=== PATIENT | male | born 1980 | race Hispanic/Latino ===

== ENCOUNTER 2018-05-20 00:50 | Inpatient (IN) | payer SELFPAY ==
[2018-05-20] MEDS ORDERED: Ondansetron PF 4 MG/2 ML Vial ONE ×2 (01:06→15:04)
[2018-05-20] MEDS ORDERED: Promethazine HCl 25 MG/ML VIAL ONE (02:16)
[2018-05-20] MEDS ORDERED: Morphine 4 MG/ML VIAL ONE (02:16)
[2018-05-20] MEDS ORDERED: Ondansetron PF 4 MG/2 ML Vial IVP PRN ×2 (04:07→11:27)
[2018-05-20] MEDS: Sodium Chloride 0.9% 1,000 ML IV SCH ×2 (04:16→13:09)
[2018-05-20] MEDS: Morphine 4 MG/ML VIAL SLOW IVP PRN ×2 (06:34→13:13)
[2018-05-20] MEDS: Piperacillin/Tazobactam 3.375 GM in Sodium Chloride 0.9% 100 ML IVPB SCH ×2 (06:34→12:39)
--- NOTE | 2018-05-20 07:16 | HP ---
CHIEF COMPLAINT: Right upper quadrant abdominal pain. HISTORY OF PRESENT ILLNESS: The patient is a 37-year-old male, who has a 3-day history of right uppe r quadrant pain, radiating to the back, associated with nausea, no vomiting, no fevers or chills. PAST MEDICAL HISTORY: Hypertension. PAST SURGERIES: Ear surgery for tumor. MEDICATIONS: None. ALLERGIES: No known drug allergies. 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 No tobacco or alcohol. FAMILY HISTORY: Noncontributory. PHYSICAL EXAMINATION: VITAL SIGNS: Temperature 97.6, pulse 62, blood pressure 117/78. GENERAL: He is awake, alert, but in severe pain, sitting upright. HEENT: No jaundice. LUNGS: Clear. HEART: Regular rate and rhythm. ABDOMEN: Soft, but very tender in the right upper quadrant with a positive Lara sign. EXTREMITIES: Unremarkable. LABORATORY DATA: His white count is 8.3, H and H 16 and 45, platelet count 242,000. Electrolytes ar e fine. Glucose elevated at 122. Liver function tests normal. Lipase normal. Urinalysis negative. He had an ultrasound showing cholelithiasis and thickened gallbladder wall. ASSESSMENT: Acute cholecystitis. PLAN: Laparoscopic cholecystectomy. CONSENT: I have discussed the planned procedure as well as risk of bleeding, infection, injury to tulio wel, bile duct, need to open. He understands and gives informed consent.
--- NOTE | 2018-05-20 07:47 | ULT ---
RIGHT UPPER QUADRANT ULTRASOUND: INDICATIONS: Pain. FINDINGS: There is no evidence of focal hepatic mass. Cholelithiasis is present. There is mild prominence of the gallbladder wall. Lara sign is reported as negative. The common duct is normal at 3 mm. Ther e is no ascites visualized. IMPRESSION: Cholelithiasis. Mild prominence of the gallbladder wall may relate to cholecystitis in the correct c linical context. POS: [facility]
[2018-05-20] MEDS ORDERED: Bupivacaine/Epinephrine 0.25% 30 ML VIAL ONE (10:18)
[2018-05-20] MEDS ORDERED: Famotidine/PF 20 mg/2ml Vial ONE (10:20)
[2018-05-20] MEDS ORDERED: Fentanyl 100 MCG/2 ML VIAL ONE (10:20)
[2018-05-20] MEDS ORDERED: Piperacillin/Tazobactam 3.375 GM VIAL ONE (10:25)
[2018-05-20] MEDS ORDERED: Promethazine HCl 25 MG/ML VIAL SLOW IVP PRN (10:55)
[2018-05-20] MEDS ORDERED: Promethazine HCl 25 MG/ML VIAL IM PRN ×2 (10:55→11:27)
[2018-05-20] MEDS ORDERED: Ondansetron HCl/PF 4 MG/2 ML Vial IVP PRN (10:55)
[2018-05-20] MEDS ORDERED: Meperidine HCl/PF 25 MG/ML VIAL SLOW IVP PRN (10:55)
[2018-05-20] MEDS ORDERED: Mag-Al 1200 mg/1200 mg/30 ML UDCUP PO PRN (11:27)
[2018-05-20] MEDS ORDERED: hydrALAZINE 20 MG/ML VIAL SLOW IVP PRN (11:27)
[2018-05-20] MEDS ORDERED: Dextrose 5% in Water 1,000 ML IV PRN (11:27)
[2018-05-20] MEDS ORDERED: Dextrose 50% Abboject 50 ML SYRINGE SLOW IVP PRN (11:27)
[2018-05-20] MEDS ORDERED: HYDROcodone/Acetaminophen 10/325 mg Tablet PO PRN (11:27)
[2018-05-20] MEDS ORDERED: Calcium Carbonate 500 MG ChewTAB PO PRN (11:27)
--- NOTE | 2018-05-20 12:03 | OP ---
DATE OF PROCEDURE: 05/20/2018 PREOPERATIVE DIAGNOSIS: Acute cholecystitis. SURGEON: Rodríguez Mcdonald M.D. PROCEDURE PERFORMED: Laparoscopic cholecystectomy. INDICATIONS: This is a 37-year-old male who presented with a 24-hour history of right upper quadrant pain radiating to the back. Ultrasound showed thickened gallbladder wall, positive Lara sign. FINDINGS: Thickened gallbladder wall with acute inflammation. PROCEDURE: After informed consent was obtained, the patient was taken to the operating room and give n general endotracheal anesthesia, placed in the supine position. The abdomen was prepped and draped in usual fashion. Local anesthesia infiltrated subcutaneously and deep, subumbilical incision was p erformed. The subcu divided sharply. Fascia grasped and 2 stay sutures of 0 Vicryl placed to either side of midline. Midline incised. Digital palpation revealed no local adhesions. A blunt 10/12 mm trocar inserted. Pneumoperitoneum was created to a pressure of 15 mmHg. Zero degree laparoscope in serted under direct vision, three 5 mm ports placed subcostally. Gallbladder grasped and advanced wallace periorly. The peritoneum was lysed distally to expose the cystic duct, artery and critical view. Th e duct was triply ligated. The artery triply ligated both divided. The gallbladder was removed from its fossa utilizing electrocautery, removed from the abdomen in an Endosac through the umbilical por t. Hemostasis assured with electrocautery. The wound irrigated. Irrigation fluid removed. Trocars and retractors removed. The fascia closed with interrupted 0 Vicryl suture. The skin closed with i nterrupted 4-0 Rapide. Steri-Strips applied. Sterile bandage applied. The patient tolerated the pr ocedure well and was transferred to recovery in good condition. Sponge and needle count verified cor rect x2.
[2018-05-20] MEDS: Ketorolac Tromethamine 30 MG/ML VIAL IVP SCH ×2 (13:00→17:30)
[2018-05-20] MEDS: D5 1/2 NS w/20 mEq KCL 1,000 ML IV SCH ×2 (13:07→20:40)
[2018-05-20] MEDS: cefOXitin 2 GM in Sodium Chloride 0.9% 100 ML IVPB SCH ×2 (13:15→20:41)
[2018-05-20] MEDS: HYDROcodone/Acetaminophen 10/325 mg Tablet PO PRN ×2 (14:34→20:41)
[2018-05-20] MEDS ORDERED: Lidocaine 1% PF 5 ML VIAL ONE (15:04)
[2018-05-20] MEDS ORDERED: Ketorolac Tromethamine 30 MG/ML VIAL ONE (15:04)
[2018-05-20] MEDS ORDERED: Metoclopramide HCl 10 MG/2 ML VIAL ONE (15:04)
[2018-05-20] MEDS ORDERED: Dexamethasone 20 MG/5 ML VIAL ONE (15:04)
[2018-05-20] MEDS ORDERED: PROPOFOL 200 MG/20 ML VIAL ONE (15:04)
[2018-05-20] MEDS ORDERED: Glycopyrrolate 0.2 MG/ML 5 ML SYRINGE ONE (15:04)
[2018-05-20] MEDS: Famotidine 20 MG TAB PO SCH (20:10)
[2018-05-20] MEDS: Famotidine/PF 20 mg/2ml Vial SLOW IVP SCH (20:40)
[2018-05-21] MEDS: Ketorolac Tromethamine 30 MG/ML VIAL IVP SCH ×5 (00:18→22:59)
[2018-05-21] MEDS: HYDROcodone/Acetaminophen 10/325 mg Tablet PO PRN ×2 (01:42→18:17)
[2018-05-21] MEDS: cefOXitin 2 GM in Sodium Chloride 0.9% 100 ML IVPB SCH ×3 (05:46→18:14)
[2018-05-21] MEDS: Morphine 2 MG/ML SYRINGE SLOW IVP PRN ×4 (05:47→20:19)
[2018-05-21] MEDS: D5 1/2 NS w/20 mEq KCL 1,000 ML IV SCH ×4 (05:49→23:48)
[2018-05-21 06:32] LABS: #Lymphocytes 1.6 thou/uL (1.20-3.40); #Monocytes 0.8 thou/uL (0.11-0.59); #Neutrophils 7.5 thou/uL (1.40-6.50); %Basophils 0.1 % (0.0-1.0); %Eosinophils 0.1 % (0.0-10.0); %Lymphocytes 16.2 % (21.0-51.0); %Monocytes 8.2 % (0.0-10.0); %Neutrophils 75.4 % (42.0-75.0); Hemoglobin 13.9 g/dL (14.0-18.0); Mean Corpuscular HGB CONC 31.7 g/dL (32.0-36.0); Mean Corpuscular Hemoglobin 29.9 pg (27.0-31.0); Mean Corpuscular Volume 94.2 fL (78.0-98.0); Mean Platelet Volume 7.1 fL (7.4-10.4); Platelet Count 225 thou/uL (130-400); RBC Distribution Width 11.5 % (11.5-14.5); Red Blood Cell (RBC) Count 4.65 mill/uL (4.70-6.10)
[2018-05-21 06:54] LABS: ALT (SGPT) 211 U/L (8-55); AST (SGOT) 184 U/L (5-34); Albumin 3.5 g/dL (3.5-5.0); Alkaline Phosphatase 51 U/L (40-150); Anion Gap 9 mmol/L (10-20); BUN (Urea Nitrogen) 9 mg/dL (8.9-20.6); Bilirubin, Total 2.7 mg/dL (0.2-1.2); Calc. Creatinine Clearance 110 mL/min (70-130); Calcium 8.8 mg/dL (7.8-10.44); Carbon Dioxide 28 mmol/L (22-29); Chloride 104 mmol/L (98-107); Estimated GFR-MDRD 81; Globulin 2.8 g/dL (2.4-3.5); Glucose 123 mg/dL (70-105); Lipase 27 U/L (8-78); Potassium 4.3 mmol/L (3.5-5.1); Protein, Total 6.3 g/dL (6.0-8.3); Sodium 137 mmol/L (136-145)
--- NOTE | 2018-05-21 08:24 | PRG ---
DATE OF SERVICE: 05/21/2018 SUBJECTIVE: The patient is still having quite a bit of pain in the epigastrium and right upper quadr ant. OBJECTIVE: VITAL SIGNS: Temperature 97.6, pulse 69, blood pressure 119/80. GENERAL: He looks a little better than he did yesterday. ABDOMEN: Soft, minimal tenderness. Incisions are healing well. LABORATORY DATA: White count is 10, H&H 13 and 43, platelet count 223. His T-bilirubin is elevated at 2.7, AST 184, ALT is 211, lipase is normal. ASSESSMENT: Worrisome for possible retained stone. PLAN: Consult GI for possible ERCP.
[2018-05-21] MEDS: Famotidine/PF 20 mg/2ml Vial SLOW IVP SCH ×2 (08:26→20:19)
[2018-05-21] MEDS: Famotidine 20 MG TAB PO SCH ×2 (09:14→20:19)
[2018-05-21] MEDS ORDERED: Levofloxacin 500 mg/D5W 100 ml Premix Bag ONE (10:40)
[2018-05-21] MEDS: Enoxaparin Sodium 40 MG/0.4 ML SYRINGE SC SCH (10:41)
[2018-05-21] MEDS ORDERED: Fentanyl 100 MCG/2 ML VIAL ONE ×2 (10:47→11:33)
[2018-05-21] MEDS ORDERED: Iothalamate Meglumine 60% 50 ML VIAL FS ONE (10:53)
[2018-05-21] MEDS ORDERED: Indomethacin 50 MG SUPP ONE (11:42)
[2018-05-21] MEDS ORDERED: ISOVUE-370 76%-LOCM 1 ML ONE (11:47)
[2018-05-21] MEDS ORDERED: Midazolam HCl 2 mg/2 ml Vial ONE (11:58)
--- NOTE | 2018-05-21 14:05 | CON ---
DATE OF CONSULTATION: 05/21/2018 REASON FOR CONSULTATION: Elevated liver enzymes after laparoscopic cholecystectomy. HISTORY OF PRESENT ILLNESS: Mr. Zimmerman is a 37-year-old gentleman, who has had intermittent pain wit h right upper quadrant for about a year or so. He had been to the ER at [facility] in March and arora d a CAT scan that was normal. He had normal labs at that time. He presented to our hospital early y ester morning with a 3-day history of right upper quadrant pain radiating to his back with nausea, but no vomiting. He was seen by Dr. Rodríguez Mcdonald. He had a white count of 8.3, normal CBC, normal li misty function test and lipase. Ultrasound showed cholelithiasis, thickened gallbladder wall. He had a laparoscopic cholecystectomy, which should acutely inflamed gallbladder. His liver function tests were noted to be elevated with bilirubin 2.7, AST and ALT of 184 and 211, they were 0.6, 28, and 29 y esterday. His lipase today is 27. He (01:29) pain at the trocar sites, (01:32) acute ch olecystitis, seems to be lessened. He has no nausea or vomiting. He has no fever or chills. An IOC was not performed at the time of his laparoscopic cholecystectomy, as his liver function tests were normal preoperatively. PAST MEDICAL HISTORY: Hypertension. PAST SURGICAL HISTORY: Ear surgery. ALLERGIES: None known. 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 His daughter is in the room with him as well a s his . FAMILY HISTORY: Negative. MEDICATIONS: Maalox, DuoNeb, Tums, cefoxitin, Lovenox, Pepcid, hydrocodone p.r.n., morphine p.r.n. PHYSICAL EXAMINATION: VITAL SIGNS: Temperature is 97.6, pulse 69, blood pressure is 119/80. GENERAL: He is resting comfortably in bed. He is in no distress. LUNGS: Clear. HEART: Regular rate and rhythm without clicks or murmurs. ABDOMEN: Soft, nontender. There is no rebound. There is no guarding. He has mild tenderness at th e trocar sites. LABORATORY STUDIES: White count 10, hemoglobin 13.9, platelet count 225. Other labs are normal. ASSESSMENT AND PLAN: Enrique in liver function tests after cholecystectomy. He had a 3 mm common duct on preoperative ultrasound, thickened gallbladder wall, and completely normal liver function tests i n March and on the day of admission. Differential diagnosis includes inflammation of liver bed p ost-laparoscopic cholecystectomy, bile leak, although he does not have that type pain or common bile duct stone. Dr. Cortez did mention that the patient had multiple small stones and is concerned for cho ledocholithiasis. We will plan for ERCP today. I have discussed the risks, benefits, and possible c omplications with the patient and he wishes to proceed.
--- NOTE | 2018-05-21 14:06 | RAD ---
ERCP: HISTORY: A 37-year-old male with a history of right upper quadrant pain. FINDINGS: Four portable fluoroscopic spot images are performed. There is injection of the common bile duct. There is suggestion of a filling defect in the distal co mmon duct on the initial study. Mild common duct dilatation. The intrahepatic ducts are incompletel y seen but appear unremarkable as visualized. IMPRESSION: Probable filling defect, distal common bile duct, on the initial image, with no persistent filling de fect on the later images that are provided. POS: [facility]
[2018-05-21] MEDS ORDERED: Ondansetron PF 4 MG/2 ML Vial ONE (14:50)
[2018-05-21] MEDS ORDERED: Glycopyrrolate 0.2 MG/ML 5 ML SYRINGE ONE (14:50)
[2018-05-21] MEDS ORDERED: PROPOFOL 200 MG/20 ML VIAL ONE (14:50)
[2018-05-21] MEDS ORDERED: Lidocaine 1% PF 5 ML VIAL ONE (14:50)
[2018-05-21] MEDS ORDERED: Bisacodyl 10 MG SUPP PR PRN (19:38)
--- NOTE | 2018-05-21 19:53 | OP ---
DATE OF SERVICE: 05/21/2018 PREOPERATIVE DIAGNOSES: 1. Elevated liver function test in a cholestatic pattern after laparoscopic cholecystectomy yesterda y. 2. Acute cholecystitis. PROCEDURES: ERCP with sphincterotomy and sweeping of the ducted balloon. ANESTHESIA: General endotracheal anesthesia, the patient is on empiric antibiotics, given Indocin wallace ppositories and IV fluids to help prevent post-ERCP pancreatitis. POSTOPERATIVE DIAGNOSES: Questionable filling defect in distal duct noted after sphincterotomy with balloon cholangiogram. The patient likely passed stone before the procedure or other causes for the elevated liver enzymes PROCEDURE IN DETAIL: After the patient was informed of the risks, benefits, and possible complicatio ns of endoscopy including perforation, bleeding, reaction to medication and aspiration, pancreatitis, informed consent was obtained. The patient was brought to endoscopy suite where he was sedated in g radual fashion. He was intubated and once the airway was secured, he was placed in prone position on the fluoroscopy table. Grader Patrol film was obtained showing clips in the right upper quadrant consistent with history of cholecystectomy. The endoscope was advanced through the esophagus, stomach and seco nd and third portion of duodenum. The ampulla was brought into view. There was clear bile emanating from the very dark. Ultimately, a cholangiogram was obtained with assistance of a guidewire _ ____ of less than 3 mL of contrast. A sphincterotomy was then performed over a guidewire. A cholang iogram suggested possibly some filling defects in the distal duct, but no distinct stones. Once the sphincterotomy was performed, no stones noted to come out of the duct. The duct was measured to be ab out 9-10 mm and it was swept 3 times with occlusion cholangiogram at the mm 9-12 mm balloon. Occlusi on cholangiogram showed no signs of filling defects. There was good drainage of contrast both endosc opically and radiographically. The scope was removed. The patient tolerated the procedure well with no complications.
[2018-05-21 22:18] LABS: #Lymphocytes 1.6 thou/uL (1.20-3.40); #Monocytes 0.9 thou/uL (0.11-0.59); #Neutrophils 6.4 thou/uL (1.40-6.50); %Basophils 0.3 % (0.0-1.0); %Eosinophils 0.3 % (0.0-10.0); %Lymphocytes 17.6 % (21.0-51.0); %Monocytes 9.8 % (0.0-10.0); Hemoglobin 14.2 g/dL (14.0-18.0); Mean Corpuscular HGB CONC 31.8 g/dL (32.0-36.0); Mean Corpuscular Hemoglobin 29.7 pg (27.0-31.0); Mean Corpuscular Volume 93.4 fL (78.0-98.0); Mean Platelet Volume 6.3 fL (7.4-10.4); Platelet Count 220 thou/uL (130-400); RBC Distribution Width 11.5 % (11.5-14.5); Red Blood Cell (RBC) Count 4.77 mill/uL (4.70-6.10); White Blood Cell (WBC) Count 8.8 thou/uL (4.8-10.8)
--- NOTE | 2018-05-21 22:23 | CT ---
CT ABDOMEN AND PELVIS WITH CONTRAST: 05/21/18 Multiple axial tomograms were obtained through the abdomen and pelvis with IV enhancement. INDICATION: Right upper quadrant pain. Back pain. Cholecystectomy one day ago. ERCP earlier today. FINDINGS: Stranding in the lung bases suggest linear atelectasis. Liver and spleen unremarkable. Postcholecystectomy clips. There is peripancreatic edema and inflammatory change suggesting pancreatitis. Correlate with laborat ory values. Adrenal glands and kidneys unremarkable. Small bowel loops appear normal caliber. Colon unremarkable. Aorta normal caliber. No adenopathy. IMPRESSION: 1. Peripancreatic fluid and inflammation consistent with pancreatitis. 2. Postoperative changes noted in the anterior subcutaneous tissues. POS: [facility]
[2018-05-21 22:47] LABS: ALT (SGPT) 216 U/L (8-55); AST (SGOT) 117 U/L (5-34); Albumin 3.6 g/dL (3.5-5.0); Alkaline Phosphatase 58 U/L (40-150); Anion Gap 6 mmol/L (10-20); BUN (Urea Nitrogen) 8 mg/dL (8.9-20.6); Bilirubin, Direct 1.7 mg/dL (0.1-0.3); Bilirubin, Total 2.6 mg/dL (0.2-1.2); Calc. Creatinine Clearance 116 mL/min (70-130); Calcium 8.4 mg/dL (7.8-10.44); Carbon Dioxide 32 mmol/L (22-29); Chloride 101 mmol/L (98-107); Estimated GFR-MDRD 86; Glucose 91 mg/dL (70-105); Potassium 3.5 mmol/L (3.5-5.1); Protein, Total 6.2 g/dL (6.0-8.3); Sodium 135 mmol/L (136-145)
[2018-05-21 23:00] LABS: Lipase 3870 U/L (8-78)
[2018-05-21] MEDS ORDERED: Fentanyl 100 MCG/2 ML VIAL SLOW IVP PRN (23:27)
[2018-05-21] MEDS ORDERED: Morphine 2 MG/ML SYRINGE SLOW IVP PRN (23:27)
[2018-05-22] MEDS: Fentanyl 100 MCG/2 ML VIAL SLOW IVP PRN ×3 (00:18→03:24)
[2018-05-22] MEDS: cefOXitin 2 GM in Sodium Chloride 0.9% 100 ML IVPB SCH ×3 (00:20→17:21)
[2018-05-22] MEDS ORDERED: Morphine 2 MG/ML SYRINGE SLOW IVP PRN (01:15)
[2018-05-22] MEDS ORDERED: Promethazine HCl 25 MG/ML VIAL IM PRN (04:07)
[2018-05-22] MEDS ORDERED: diphenhydrAMINE 50 MG/ML VIAL IM PRN (04:07)
[2018-05-22] MEDS ORDERED: Naloxone HCl 0.4 mg/ml Vial IV PRN (04:07)
[2018-05-22] MEDS ORDERED: Zolpidem Tartrate 5 MG TAB PO PRN (04:07)
[2018-05-22] MEDS ORDERED: Communication Order-Pharmacy FS SCH (04:15)
[2018-05-22] MEDS: HYDROmorphone 10 mg/100 ml CADD IVPB PRN ×3 (04:32→23:52)
[2018-05-22 05:53] LABS: #Monocytes 0.8 thou/uL (0.11-0.59); %Basophils 0.2 % (0.0-1.0); %Eosinophils 0.4 % (0.0-10.0); %Lymphocytes 9.8 % (21.0-51.0); %Neutrophils 81.7 % (42.0-75.0); Hemoglobin 14.5 g/dL (14.0-18.0); Mean Corpuscular HGB CONC 32.4 g/dL (32.0-36.0); Mean Corpuscular Hemoglobin 30.5 pg (27.0-31.0); Mean Corpuscular Volume 94.4 fL (78.0-98.0); Mean Platelet Volume 7.1 fL (7.4-10.4); Platelet Count 196 thou/uL (130-400); RBC Distribution Width 11.7 % (11.5-14.5); Red Blood Cell (RBC) Count 4.76 mill/uL (4.70-6.10); White Blood Cell (WBC) Count 9.8 thou/uL (4.8-10.8)
[2018-05-22 06:05] LABS: ALT (SGPT) 202 U/L (8-55); AST (SGOT) 99 U/L (5-34); Albumin 3.6 g/dL (3.5-5.0); Alkaline Phosphatase 68 U/L (40-150); Anion Gap 10 mmol/L (10-20); BUN (Urea Nitrogen) 7 mg/dL (8.9-20.6); Bilirubin, Total 2.8 mg/dL (0.2-1.2); Calc. Creatinine Clearance 110 mL/min (70-130); Calcium 8.5 mg/dL (7.8-10.44); Carbon Dioxide 28 mmol/L (22-29); Chloride 104 mmol/L (98-107); Estimated GFR-MDRD 81; Globulin 2.8 g/dL (2.4-3.5); Glucose 101 mg/dL (70-105); Potassium 3.7 mmol/L (3.5-5.1); Protein, Total 6.4 g/dL (6.0-8.3); Sodium 138 mmol/L (136-145)
[2018-05-22 06:06] LABS: ALT (SGPT) 200 U/L (8-55); AST (SGOT) 97 U/L (5-34); Albumin 3.6 g/dL (3.5-5.0); Alkaline Phosphatase 68 U/L (40-150); Bilirubin, Direct 1.7 mg/dL (0.1-0.3); Bilirubin, Total 2.8 mg/dL (0.2-1.2); Protein, Total 6.4 g/dL (6.0-8.3)
[2018-05-22] MEDS: D5 1/2 NS w/20 mEq KCL 1,000 ML IV SCH (06:17)
[2018-05-22] MEDS: Ketorolac Tromethamine 30 MG/ML VIAL IVP SCH ×4 (06:17→23:53)
[2018-05-22 06:18] LABS: Lipase 3458 U/L (8-78)
[2018-05-22] MEDS ORDERED: Sodium Chloride 0.9% 1,000 ML IV SCH ×2 (07:30→15:45)
--- NOTE | 2018-05-22 07:36 | PRG ---
DATE OF SERVICE: 05/22/2018 SUBJECTIVE: After his ERCP, the patient developed severe epigastric and back pain. He was taken to CT scan, which showed a pancreatitis. The pain continued over the night, did not respond to morphine or fentanyl. Anesthesia was consulted and a Dilaudid COUNSELING SPECIALIST pump was started that did not help at firs t, but has started to help some now. He denies any nausea or vomiting. He is not passing any flatus at his bottom. PHYSICAL EXAMINATION: VITAL SIGNS: Temperature is 98.4, pulse 109, blood pressure is 160/106. GENERAL: He is in a lot of pain. I talked to him through the tow motor driver phone and explained to him what is going on. ABDOMEN: Distended. He has some periumbilical ecchymosis, no evidence of acute infection. LABORATORY DATA: His white count is 9.8, H&H is 14 and 44, platelet count of 196. His electrolytes show a total bilirubin of 2.8. His AST is 97, ALT of 2000. His amylase is 1700 and his lipase is 34 58, which is slightly down from midnight, which was 3870. ASSESSMENT: Acute pancreatitis secondary to endoscopic retrograde cholangiopancreatography. PLAN: Fluid hydration, pain control, n.p.o. status.
[2018-05-22] MEDS: Famotidine/PF 20 mg/2ml Vial SLOW IVP SCH (08:10)
[2018-05-22] MEDS: Sodium Chloride 0.9% 1,000 ML IV SCH ×4 (08:10→21:39)
[2018-05-22] MEDS: Enoxaparin Sodium 40 MG/0.4 ML SYRINGE SC SCH (09:19)
[2018-05-22] MEDS: Famotidine 20 MG TAB PO SCH (09:23)
[2018-05-22 17:00] LABS: Hemoglobin 15.3 g/dL (14.0-18.0); Mean Corpuscular HGB CONC 31.4 g/dL (32.0-36.0); Mean Corpuscular Hemoglobin 29.7 pg (27.0-31.0); Mean Corpuscular Volume 94.6 fL (78.0-98.0); Mean Platelet Volume 6.5 fL (7.4-10.4); Platelet Count 251 thou/uL (130-400); RBC Distribution Width 11.8 % (11.5-14.5); Red Blood Cell (RBC) Count 5.13 mill/uL (4.70-6.10); White Blood Cell (WBC) Count 12.1 thou/uL (4.8-10.8)
[2018-05-22 17:22] LABS: ALT (SGPT) 171 U/L (8-55); AST (SGOT) 73 U/L (5-34); Albumin 3.8 g/dL (3.5-5.0); Alkaline Phosphatase 75 U/L (40-150); Anion Gap 13 mmol/L (10-20); BUN (Urea Nitrogen) 9 mg/dL (8.9-20.6); Band 37 % (5-11); Bilirubin, Total 2.7 mg/dL (0.2-1.2); Calc. Creatinine Clearance 103 mL/min (70-130); Calcium 8.2 mg/dL (7.8-10.44); Carbon Dioxide 26 mmol/L (22-29); Chloride 106 mmol/L (98-107); Estimated GFR-MDRD 75; Glucose 90 mg/dL (70-105); Lymphocytes 4 % (21-51); MDiff Complete? YES; Magnesium 1.7 mg/dL (1.6-2.6); Monocytes 1 % (0-10); Neutrophil 57 % (42-75); PLT Morphology Comment Appears Adequate; Phosphorus 2.6 mg/dL (2.3-4.7); Potassium 3.9 mmol/L (3.5-5.1); Protein, Total 6.8 g/dL (6.0-8.3); Reactive Lymphocytes 1 % (0-10); Sodium 141 mmol/L (136-145)
[2018-05-22 17:36] LABS: Lipase 2991 U/L (8-78)
[2018-05-23] MEDS: cefOXitin 2 GM in Sodium Chloride 0.9% 100 ML IVPB SCH ×3 (01:52→17:08)
[2018-05-23] MEDS: Sodium Chloride 0.9% 1,000 ML IV SCH ×4 (01:53→21:19)
[2018-05-23] MEDS: Ketorolac Tromethamine 30 MG/ML VIAL IVP SCH ×3 (05:13→17:08)
[2018-05-23 06:00] LABS: ALT (SGPT) 128 U/L (8-55); AST (SGOT) 70 U/L (5-34); Albumin 3.3 g/dL (3.5-5.0); Alkaline Phosphatase 60 U/L (40-150); Anion Gap 12 mmol/L (10-20); BUN (Urea Nitrogen) 14 mg/dL (8.9-20.6); Bilirubin, Direct 1.6 mg/dL (0.1-0.3); Bilirubin, Total 2.7 mg/dL (0.2-1.2); Calc. Creatinine Clearance 106 mL/min (70-130); Calcium 8.3 mg/dL (7.8-10.44); Carbon Dioxide 25 mmol/L (22-29); Chloride 109 mmol/L (98-107); Estimated GFR-MDRD 78; Glucose 92 mg/dL (70-105); Potassium 4.2 mmol/L (3.5-5.1); Protein, Total 6.2 g/dL (6.0-8.3); Sodium 142 mmol/L (136-145)
[2018-05-23 06:15] LABS: Lipase 1457 U/L (8-78)
[2018-05-23 06:25] LABS: Band 41 % (5-11); Hemoglobin 13.4 g/dL (14.0-18.0); Lymphocytes 16 % (21-51); MDiff Complete? YES; Mean Corpuscular HGB CONC 31.4 g/dL (32.0-36.0); Mean Corpuscular Hemoglobin 29.8 pg (27.0-31.0); Mean Corpuscular Volume 94.9 fL (78.0-98.0); Mean Platelet Volume 6.9 fL (7.4-10.4); Metamyelocyte 2 % (0-0); Monocytes 6 % (0-10); Neutrophil 35 % (42-75); Platelet Count 196 thou/uL (130-400); RBC Distribution Width 11.9 % (11.5-14.5); White Blood Cell (WBC) Count 11.4 thou/uL (4.8-10.8)
[2018-05-23] MEDS: HYDROmorphone 10 mg/100 ml CADD IVPB PRN ×2 (07:58→17:12)
[2018-05-23] MEDS: Enoxaparin Sodium 40 MG/0.4 ML SYRINGE SC SCH (08:08)
[2018-05-23] MEDS: Pantoprazole 40 MG VIAL IVP SCH (08:09)
--- NOTE | 2018-05-23 08:56 | PRG ---
DATE OF SERVICE: 05/23/2018 SUBJECTIVE: Mr. Zimmerman states that he feels slightly improved today. No significant nausea. The pa in is up and below his umbilicus. He is still tachycardic, but blood pressures and urine output are stable. PHYSICAL EXAMINATION: VITAL SIGNS: Pulse is 90, respirations 16, temperature 98.5, blood pressure is 112/78. His urine ou tput was 2275 yesterday and 675 overnight. IV fluids remained at 200 an hour. ABDOMEN: Soft, it is distended and tender in the epigastric area. He has some ecchymoses around his umbilical wound. LABORATORY DATA: White blood cell count is 11, hemoglobin is 13, platelets are 196. Sodium is 142. Creatinine 1.07. Bilirubin 2.7. Lipase is 1457 and his amylase is 1432. ASSESSMENT: Postop laparoscopic cholecystectomy and endoscopic retrograde cholangiopancreatography p ancreatitis. PLAN: Continue supportive care. His urine output is good. I do not suspect he is in shock. I thin k he is stable to remain on the floor, continue MOBILE DESIGNER for now. As he clinically improves, we will rest art clear liquids.
--- NOTE | 2018-05-23 13:58 | PRG ---
DATE OF SERVICE: 05/23/2018 SUBJECTIVE: The patient states that his abdominal pain is improved when compared to yesterday, but o nly slightly so. The majority of his pain seems centered beneath his umbilicus in the right lower qu adrant. Otherwise, he denies any nausea, vomiting, fevers, chills, GI bleeding. OBJECTIVE: VITAL SIGNS: Temperature 98.4, pulse 121, blood pressure 123/86, respiratory rate 20, satting 93% on 1 liter nasal cannula. GENERAL: The patient was lying in bed in no acute distress. He is alert and oriented x4, Micronesian sp eaking only. HEART: Tachycardic rate, but regular rhythm. LUNGS: Clear to auscultation bilaterally. ABDOMEN: Normoactive bowel sounds, soft. Tenderness to palpation in the periumbilical and lower abd ominal quadrants. Significant ecchymoses is noted around the umbilicus and extending into the suprap ubic region. EXTREMITIES: No cyanosis, clubbing or edema. LABORATORY DATA: CBC with a white blood cell count of 11.4, hemoglobin 13.4, hematocrit 42.8, platel ets 196. Chemistry with sodium of 142, potassium 4.2, chloride 109, CO2 of 25, BUN 14, creatinine 1. 07, glucose 92, AST 70, ALT 128, alkaline phosphatase 60, total bilirubin 2.7. IMAGING DATA: The patient underwent ERCP on 05/21/2018 with findings of possible filling defects on occlusion cholangiogram, but no distinct stones. Successive balloon sweeps did not yield any large s tone debris; however, there was good drainage of contrast both endoscopically and radiographically at the end of the procedure. ASSESSMENT AND PLAN: The patient is a 37-year-old male with past medical history of hyperte nsion presenting with cholecystitis, now status post laparoscopic cholecystectomy with elevated liver function test in a post procedure period concerning of choledocholithiasis, but now status post ERCP . Abdominal pain and lipase now consistent with post-ERCP pancreatitis. Choledocholithiasis/post ERCP pancreatitis: The patient initially presented with elevated LFTs as we ll as cholelithiasis that prompted the General Surgery Service for laparoscopic cholecystectomy. In the postoperative period, he was noted to have a significant elevation in his transaminases concernin g for choledocholithiasis. He subsequently underwent ERCP on 05/21/2018 with possible stone debris, but otherwise relatively clear duct. In the post-ERCP period, he did develop increased midepigastric abdominal pain as well as a significant elevated lipase consistent with post-ERCP pancreatitis. Wit h more conservative management, he is slowly improving with a DIETITIAN TEACHING pump as well as IV fluids and good urine output while on IV fluids. He does have some continued lower abdominal pain, but it seems to b e more related to postoperative changes or the ecchymosis related to the umbilical trocar site. RECOMMENDATIONS: 1. Continue with IV fluids at current rate and monitor urine output. 2. Pain control per primary team. 3. We would continue n.p.o. status for now with advancement of the patient's diet within the next 24 hours to clear liquids and assessed as tolerated. We will continue to follow. Please call with any questions.
[2018-05-24] MEDS: cefOXitin 2 GM in Sodium Chloride 0.9% 100 ML IVPB SCH ×3 (00:31→17:26)
[2018-05-24] MEDS: Ketorolac Tromethamine 30 MG/ML VIAL IVP SCH ×4 (00:31→17:24)
[2018-05-24] MEDS: Sodium Chloride 0.9% 1,000 ML IV SCH ×4 (00:32→15:31)
[2018-05-24] MEDS: HYDROmorphone 10 mg/100 ml CADD IVPB PRN ×3 (02:15→18:04)
[2018-05-24] MEDS: Enoxaparin Sodium 40 MG/0.4 ML SYRINGE SC SCH (08:35)
[2018-05-24] MEDS: Pantoprazole 40 MG VIAL IVP SCH (08:35)
[2018-05-24] MEDS: Acetaminophen 1,000 MG in Premix Bag 1 BAG IVPB PRN ×3 (08:48→21:18)
--- NOTE | 2018-05-24 11:21 | PRG ---
DATE OF SERVICE: 05/22/2018 SUBJECTIVE: Mr. Zimmerman developed pain last night, it was quite severe. He had labs performed at 22: 14 and he had bilirubin of 2.6, AST and ALT are 117 and 216 and his lipase gone up to 3870 from 5:00 a.m. yesterday morning. Morning labs showed a BUN and creatinine of 7 and 1.03 and a lipase of 3458. Bilirubin is 2.8 with an AST and ALT of 99 and 202. His hemoglobin went from 13.9 at 5:00 in and h ad a lot of suprapubic pain. He had a Langley placed with 500 mL out and since that time he has had ab out 200 more mL out. He complains of suprapubic pain mainly and states he is uncomfortable sitting o n the toilet. He is not short of breath. He does note some bruising around his umbilicus. There is umbilical trocar site. PHYSICAL EXAMINATION: VITAL SIGNS: Temperature 100.2 at 11:00, 98.8 at 1:00, pulse 103 to 126, blood pressure is 134/83. GENERAL: He appears to be in some distress. HEENT: Oropharynx is moist. Conjunctivae and sclerae are clear. NECK: Supple. LUNGS: Clear. ABDOMEN: Has no bowel sounds. He has got some superficial bruising around the trocar site at the um bilical area. It is not tense or hard. His urine in the Langley was slightly dark. EXTREMITIES: No clubbing, cyanosis or edema. SKIN: Warm and dry. ASSESSMENT: 1. Cholelithiasis, status post cholecystectomy. 2. Abnormal liver enzymes with biliary sludge, status post ERCP. 3. Post-ERCP pancreatitis despite liter of IV fluids and Indocin suppositories following this proced ure. I think, this is moderate to severe pancreatitis. He received a liter bolus this morning than 200 mL an hour since about 2 liters. He has already been started on a OPTIC FIBRE DRAWER for pain control. His hem oglobin this morning on the labs appeared stable. PLAN: 1. We will bolus another liter of fluid now, asked the nurse to talk to pain management, the anesthe joelle about pain control and will go and repeat comprehensive metabolic profile, lipase and CBC n ow. 2. Strict ins and outs. 3. If he were to worsen of decrease urine output, he will need to be moved to the ICU. I have expla ined this to the family with the surgical assistant certified and Dr. Fields will be seeing the patient over the weekend .
--- NOTE | 2018-05-24 11:30 | PRG ---
DATE OF SERVICE: 05/24/2018 SUBJECTIVE: Mr. Zimmerman is still complaining of pain and bloating. His ecchymoses to the umbilicus i s slightly worse. PHYSICAL EXAMINATION: VITAL SIGNS: His blood pressure is 135/99, his pulse is 115, respirations 18. ABDOMEN: Distended, tender epigastric and around the umbilicus with ecchymoses. LABORATORY DATA: White blood cell count was not rechecked today. ASSESSMENT: Post endoscopic retrograde cholangiopancreatography and laparoscopic cholecystectomy palomino creatitis. PLAN: Continue supportive care. Discussed with Dr. Fields. We will lower his IV fluid rate a little bit since he started to third space quite a bit. He has good urine output. We will allow for some clear liquids.
--- NOTE | 2018-05-24 17:57 | PRG ---
DATE OF SERVICE: 05/24/2018 REASON FOR CONSULTATION: Post-ERCP pancreatitis. SUBJECTIVE: The patient states that his abdominal pain worsened over the last 24 hours, now with inc reased abdominal pain in the suprapubic region just superior to the inguinal canal. This is also ass ociated with mild worsening of the hematoma around his umbilicus. He has been receiving Dilaudid PLASTIC PANEL INSTALLER for this condition with pain moderately controlled with dysmotility. Otherwise, he denies any nause a, vomiting, fevers, chills or GI bleeding. OBJECTIVE: VITAL SIGNS: Temperature 98.1, pulse 116, blood pressure 134/90, respiratory rate 18, satting 92% on room air. GENERAL: The patient was lying in bed in no acute distress. He is alert and oriented x4. CARDIOVASCULAR: Tachycardic rate, but regular rhythm. PULMONARY: Clear to auscultation bilaterally. ABDOMEN: Normoactive bowel sounds, soft, mild distention. Tenderness to palpation in the periumbili zuri, suprapubic, right lower quadrant and left lower quadrant. Significant ecchymoses is noted aroun d the umbilicus and extending into the suprapubic region. EXTREMITIES: 2+ bilateral lower extremity edema extending into mid-thigh. LABORATORY DATA: No current studies are available for review. IMAGING DATA: No current GI imaging is available for review. ASSESSMENT AND PLAN: The patient is a 37-year-old male with past medical history of hyperte nsion presenting with cholecystitis, now status post laparoscopic cholecystectomy, but with choledoch olithiasis, now status post ERCP and posterior CP pancreatitis. Choledocholithiasis/post ERCP pancreatitis: The patient initially presented with elevated LFTs as we ll as cholelithiasis that prompted laparoscopic cholecystectomy. In the postoperative period, he was noted to have significant elevation in his transaminases concerning for choledocholithiasis. He sub sequently underwent an ERCP on 05/21/2018 with possible stone debris, but otherwise a relatively heath r common bile duct. In the post-procedure period, he did develop increased midepigastric abdominal p ain as well as elevated lipase consistent with post-ERCP pancreatitis. He was subsequently placed on IV fluids and a Dilaudid PLASTIC PANEL INSTALLER pump and while on this regimen had been doing well until approximately 24 hours ago when he began to have increased suprapubic abdominal pain. He does continue to have goo d urine output with dark yellow urine within the Langley bag at bedside and his pain is currently well controlled with the Dilaudid PLASTIC PANEL INSTALLER pump; however, he does exhibit signs of hypervolemia as evidenced by increased upper extremity edema as well as increased pitting edema of the bilateral lower extremitie s. Given the location of his pain at this time, it seems to be more related to the ecchymoses and is actually not consistent with pancreatitis type pain given its location; however, at this time, it ma y be a combination of both pancreatitis and postsurgical change related to his laparoscopic cholecyst ectomy. This could be also secondary to constipation related to high dose narcotic administration an d may benefit from administration of a bowel regimen including MiraLax. RECOMMENDATIONS: 1. We would discontinue fluids at this current time given the hypervolemic state noted on physical e xam. 2. Pain control per primary team. 3. We would continue clear liquid diet and advance as tolerated. 4. We will consider administration of MiraLax as part of bowel regimen that may be contributing to h is current suprapubic pain. 5. We will continue to follow. Please call with any questions.
[2018-05-25] MEDS: cefOXitin 2 GM in Sodium Chloride 0.9% 100 ML IVPB SCH ×3 (00:29→16:03)
[2018-05-25] MEDS: diphenhydrAMINE 50 MG/ML VIAL IVP PRN (00:30)
[2018-05-25] MEDS: Ketorolac Tromethamine 30 MG/ML VIAL IVP SCH ×3 (00:31→13:15)
[2018-05-25] MEDS: HYDROmorphone 10 mg/100 ml CADD IVPB PRN ×2 (03:40→16:03)
[2018-05-25] MEDS: Acetaminophen 1,000 MG in Premix Bag 1 BAG IVPB PRN ×2 (05:09→18:40)
[2018-05-25 06:00] LABS: #Eosinphils 0.2 thou/uL (0.0-0.7); #Lymphocytes 1.2 thou/uL (1.20-3.40); #Monocytes 1.9 thou/uL (0.11-0.59); #Neutrophils 11.5 thou/uL (1.40-6.50); %Basophils 0.2 % (0.0-1.0); %Eosinophils 1.3 % (0.0-10.0); %Lymphocytes 8.2 % (21.0-51.0); %Neutrophils 77.3 % (42.0-75.0); Hemoglobin 12.2 g/dL (14.0-18.0); Mean Corpuscular HGB CONC 32.3 g/dL (32.0-36.0); Mean Corpuscular Hemoglobin 30.8 pg (27.0-31.0); Mean Corpuscular Volume 95.5 fL (78.0-98.0); Mean Platelet Volume 7.2 fL (7.4-10.4); Platelet Count 250 thou/uL (130-400); RBC Distribution Width 12.1 % (11.5-14.5); Red Blood Cell (RBC) Count 3.95 mill/uL (4.70-6.10); White Blood Cell (WBC) Count 14.9 thou/uL (4.8-10.8)
[2018-05-25 06:21] LABS: ALT (SGPT) 81 U/L (8-55); AST (SGOT) 44 U/L (5-34); Albumin 3.2 g/dL (3.5-5.0); Alkaline Phosphatase 75 U/L (40-150); Anion Gap 11 mmol/L (10-20); BUN (Urea Nitrogen) 13 mg/dL (8.9-20.6); Bilirubin, Total 1.3 mg/dL (0.2-1.2); Calc. Creatinine Clearance 138 mL/min (70-130); Calcium 8.8 mg/dL (7.8-10.44); Carbon Dioxide 27 mmol/L (22-29); Chloride 107 mmol/L (98-107); Estimated GFR-MDRD Greater than 90; Globulin 3.4 g/dL (2.4-3.5); Glucose 84 mg/dL (70-105); Potassium 3.3 mmol/L (3.5-5.1); Protein, Total 6.6 g/dL (6.0-8.3); Sodium 142 mmol/L (136-145)
--- NOTE | 2018-05-25 09:24 | PRG ---
DATE OF SERVICE: 05/25/2018 SUBJECTIVE: Mr. Zimmerman is still complaining of pain in his abdomen at umbilicus and below. He is also complaining of severe swelling of his scrotum. He questions whether his urine is filling up his scrotum. Continues to have a roman catheter and he tolerated the liquids without difficulty. He states that it is hard to take deep breath because his abdominal distention. Family and patient continue to question the reason for his distention and pain. OBJECTIVE: VITAL SIGNS: Blood pressure is 165/103, pulse 109, respirations 18, O2 sat 92% on room air. Urine output 650 overnight. ABDOMEN: Slightly less distended. Ecchymoses to the lower abdomen is stable. GENITOURINARY: His scrotum is examined and it is swollen with edema; however, there is no evidence of cellulitis, necrotic skin, bulla formation or crepitance. LABORATORY DATA: White cell count is 14, hemoglobin is 12, platelet count is 250. Sodium 142, potassium 3.3, creatinine is 0.82, bilirubin is down to 1.3, alkaline phosphatase is normal. ASSESSMENT: Resolving pancreatitis, but continued third spacing including scrotum, which is expected for his volume resuscitation. PLAN: Due to his infectious count being slightly elevated today and continued pain. We will do a CT scan abdomen with IV and PO contrast today for followup. I do think he is getting better slowly. Continue clear liquids for now. Spent 30 minutes on separate occasions discussing with multiple family members the diagnosis of pancreatitis, the etiology of his pain and swelling and the need for time to resolve. DAMIAN
[2018-05-25] MEDS: Pantoprazole 40 MG VIAL IVP SCH (09:36)
[2018-05-25] MEDS: Enoxaparin Sodium 40 MG/0.4 ML SYRINGE SC SCH (09:36)
[2018-05-25] MEDS ORDERED: ISOVUE-370 76%-LOCM 1 ML ONE (10:19)
[2018-05-25] MEDS ORDERED: Iopamidol 370 76% 50 ML VIAL FS ONE (10:19)
[2018-05-25 13:14] LABS: Troponin I 0.011 ng/mL (< 0.028)
[2018-05-25] MEDS ORDERED: Lisinopril 5 MG TAB PO SCH (14:00)
--- NOTE | 2018-05-25 14:26 | CT ---
CT ABDOMEN AND PELVIS: HISTORY: Pancreatitis with continued pain. COMPARISON: CT abdomen and pelvis 01/18/2018. FINDINGS: Mild atelectasis of the lung bases. No pericardial effusion. Recent cholecystectomy change. There is extensive edema surrounding the pancreatic and uncinate proc ess. There is a small focal area of gas, improving, along the dorsal aspect of the pancreatic head. The amount of inflammatory change has increased. Inflammation extends along the superior mesenteric vessels with some narrowing of the superior mesenteric vessels with some narrowing of the superior m esenteric vein. Secondary inflammatory changes are present of the transverse colon adjacent to the g allbladder fossa. Secondary inflammatory changes are present in the 1st, 2nd, and 3rd portions of the duodenum. Kidneys and spleen are unremarkable. There is a focal hypodensity of hepatic segment 4 being near th e falciform ligament, likely a focal area of fatty sparring, although was not well seen on the prior examination which is likely the difference in the phase of contrast. Extensive third spacing of fluid. The appendix is visualized and is normal. IMPRESSION: 1. Progressive interstitial edematous pancreatitis without evidence of necrosis. There is progressi ve inflammatory change around the pancreatic head and uncinate process with secondary progressive inf lammatory changes of the transverse colon as well as of the 1st, 2nd, and 3rd portions of the duodenu m. 2. Extensive third spacing of fluid. POS: STEPH
--- NOTE | 2018-05-25 18:02 | CON ---
DATE OF CONSULTATION: 05/25/2018 ATTENDING PHYSICIAN: Myles Arreguin M.D. REASON FOR CONSULTATION: Blood pressure management. HISTORY OF PRESENT ILLNESS: The patient is a 37-year-old male, Slovenian-speaking only patien lidia, who was admitted to the hospital and underwent ERCP and developed post-ERCP pancreatitis, which is quite complicated and Dr. Arreguin asked [facility] to help with the blood pressure alina toring and treatment. PAST MEDICAL HISTORY: Hypertension. PAST SURGICAL HISTORY: Ear surgery for tumor. ALLERGIES: None. SOCIAL HISTORY: No history of tobacco, alcohol use, or any illicit drugs. FAMILY HISTORY: Noncontributory. MEDICATIONS: Cefoxitin 2 g every 8 hours IV piggyback, enoxaparin 40 mg subcutaneously every 24 hour s, hydromorphone pump, naloxone p.r.n., pantoprazole 40 mg IV, polyethylene glycol 17 g. PHYSICAL EXAMINATION: VITAL SIGNS: Blood pressure is 152/96, temperature 99.1, respiratory rate is 28, O2 saturation is 91 % on room air. HEENT: Atraumatic, normocephalic. Eyes are PERRLA. Sclerae nonicteric. Oral mucosa is somewhat dr y. NECK: Supple. LUNGS: Breath sounds somewhat diminished at both bases. No crackles, no rales, no wheezing. HEART: S1, S2, somewhat tachycardic, no S3, no S4. ABDOMEN: Distended, erythematous with bruise in the lower parts. Peristalsis present. Scrotum and p abhinav significantly swollen. GENITOURINARY: Langley catheter in place. EXTREMITIES: No clubbing or cyanosis. NEUROLOGIC: He is alert and oriented x4. There is no any motor or sensory deficits present. Crania l nerves are intact. LABORATORY DATA: Showed white count of 14.9, hemoglobin 12.2, hematocrit 37.8, platelet count 250,00 0. Chemistry: Sodium of 142, potassium 3.3, chloride 107, CO2 of 27, BUN 13, creatinine 0.82, total bilirubin 1.3, AST 44, ALT 81, alkaline phosphatase 75, albumin is 3.2. IMPRESSION: 1. Post-endoscopic retrograde cholangiopancreatography pancreatitis. 2. Acute cholecystitis, status post laparoscopic cholecystectomy. 3. Choledocholithiasis. 4. Hypertension. The patient although clinically is still with significant amount of pain and swelling on his abdomen, but per lab testing his numbers are getting better. His CT of the abdomen done today showed extensi ve inflammatory changes of the pancreas and surrounding areas with duodenum included. The patient is third spacing. At this point. He is able to tolerate some clear liquids and this will be managed p er primary team, GI and General Surgery. On my part, I will start him on lisinopril 5 mg once a day for blood pressure control and will make some adjustment as it goes. Thank you very much for letting me participate in the care of this patient and will follow this case with you.
--- NOTE | 2018-05-25 21:01 | PRG ---
DATE OF SERVICE: 05/25/2018 REASON FOR CONSULTATION: Post-ERCP pancreatitis, choledocholithiasis. SUBJECTIVE: The patient continues to have worsening of his lower abdominal pain centered in the supr apubic region just superior until the bladder/inguinal canal. He has not had a bowel movement in andra roximately 2-3 days as well while on a Dilaudid TRAFFIC CONTROL SUPERVISOR pump. Otherwise, he denies any nausea, vomiting, fevers, chills, or GI bleeding. OBJECTIVE: VITAL SIGNS: Temperature 99.5, pulse 104, blood pressure 143/97, respiratory rate 12, satting 95% on room air. GENERAL: The patient was sitting at bedside and in moderate distress, alert and oriented x4. CARDIOVASCULAR: Tachycardic rate, but regular rhythm. RESPIRATORY: Clear to auscultation bilaterally. ABDOMEN: Normoactive bowel sounds, soft, nondistended. Tenderness to palpation in the periumbilical suprapubic right lower quadrant and left lower quadrant. Significant ecchymosis is noted around the umbilicus and extending into the suprapubic region. EXTREMITIES: 2+ bilateral lower extremity edema extending into the mid thigh as well as increased sc rotal edema. LABORATORY DATA: CBC with a white blood cell count of 14.9, hemoglobin 12.2, hematocrit 37.8, platel ets 250. Chemistry with a sodium of 142, potassium 3.3, chloride 107, CO2 of 27, BUN 13, creatinine 0.82, glucose 84, AST 44, ALT 81, alkaline phosphatase 75, total bilirubin 1.3. IMAGING DATA: CT of the abdomen and pelvis obtained on May 25, 2018, showed recent cholecystect jason with perioperative change as well as extensive edema surrounding the peripancreatic and uncinate process. There is a small focal area of gas improving along the dorsal aspect of the pancreatic head as well as inflammatory changes, increased since the prior examination. The inflammation extends al ailin the superior mesenteric vessels with some narrowing of the superior mesenteric vein. At this shruthi e, it is indicative of progressive interstitial edematous pancreatitis without evidence of necrosis t hat is accompanied with secondary progressive inflammation changes of the transverse colon as well as the first, second, and third portions of the duodenum. There was also extensive third spacing of fl uid noted on the CT scans as well. ASSESSMENT AND PLAN: The patient is a 37-year-old male with past medical history of hyperte nsion presenting with cholecystitis, now status post laparoscopic cholecystectomy, but with choledoch olithiasis, now status post endoscopic retrograde cholangiopancreatography and post-endoscopic retrog rade cholangiopancreatography pancreatitis. Choledocholithiasis/ post-endoscopic retrograde cholangiopancreatography pancreatitis. The patient i nitially presented with elevated LFTs as well as cholelithiasis that prompted laparoscopic cholecyste ctomy. In the postoperative period, he was noted to have up-trending transaminases concerning for ch oledocholithiasis. He subsequently underwent an ERCP on May 21, 2018 with some stone debris rem enrique, but otherwise relatively clear common bile duct. In the post-procedure period, he did develop increased midepigastric abdominal pain as well as an elevated lipase consistent with post-ERCP pancre atitis. Since that time, he was placed on IV fluids and placed on Dilaudid TRAFFIC CONTROL SUPERVISOR pump and had been doi ng well on this regimen, but more recently had been having worsening of his lower abdominal pain. CT scan obtained on May 25, 2018, showed moderate to severe interstitial pancreatitis without evid ence of necrosis as well as extension of the inflammation around the transverse colon and duodenum. Despite his increasing pain that is currently moderately controlled with Dilaudid TRAFFIC CONTROL SUPERVISOR, his LFTs have almost returned to normal. He is currently unable to tolerate the clear liquid diet that he was plac ed on approximately 24 hours ago with restart of IV fluids in the interim. He does have significant edema of the lower extremities and scrotum consistent with third spacing of this fluid but does elva nue to have good urine output. At this time, his increased abdominal pain could be due to the sequel ae of acute post- endoscopic retrograde cholangiopancreatography pancreatitis but could also be secon ciara to constipation related to high dose narcotic administration. RECOMMENDATIONS: 1. Continue IV fluids given intolerance to oral intake. 2. Pain control per primary team. 3. We would consider administration of MiraLax and naloxegol as a part of bowel regimen contributing to his suprapubic pain. 4. We will continue to follow. Please call with any questions.
[2018-05-25] MEDS: diphenhydrAMINE 25 MG CAP PO PRN (21:23)
[2018-05-26] MEDS: HYDROmorphone 10 mg/100 ml CADD IVPB PRN ×3 (01:04→19:10)
[2018-05-26] MEDS: Acetaminophen 1,000 MG in Premix Bag 1 BAG IVPB PRN ×3 (01:21→17:17)
[2018-05-26] MEDS: cefOXitin 2 GM in Sodium Chloride 0.9% 100 ML IVPB SCH ×3 (01:21→18:05)
[2018-05-26 06:05] LABS: ALT (SGPT) 59 U/L (8-55); AST (SGOT) 32 U/L (5-34); Albumin 2.9 g/dL (3.5-5.0); Alkaline Phosphatase 81 U/L (40-150); Anion Gap 12 mmol/L (10-20); BUN (Urea Nitrogen) 15 mg/dL (8.9-20.6); Bilirubin, Total 1.2 mg/dL (0.2-1.2); Calc. Creatinine Clearance 138 mL/min (70-130); Calcium 8.5 mg/dL (7.8-10.44); Carbon Dioxide 26 mmol/L (22-29); Chloride 106 mmol/L (98-107); Estimated GFR-MDRD Greater than 90; Globulin 3.2 g/dL (2.4-3.5); Glucose 89 mg/dL (70-105); Lipase 69 U/L (8-78); Magnesium 2.1 mg/dL (1.6-2.6); Potassium 3.6 mmol/L (3.5-5.1); Protein, Total 6.1 g/dL (6.0-8.3); Sodium 140 mmol/L (136-145)
[2018-05-26 06:15] LABS: Phosphorus 1.6 mg/dL (2.3-4.7)
[2018-05-26 06:40] LABS: Band 22 % (5-11); Lymphocytes 6 % (21-51); MDiff Complete? YES; Mean Corpuscular HGB CONC 33.2 g/dL (32.0-36.0); Mean Corpuscular Hemoglobin 31.3 pg (27.0-31.0); Mean Corpuscular Volume 94.4 fL (78.0-98.0); Mean Platelet Volume 6.9 fL (7.4-10.4); Monocytes 16 % (0-10); Neutrophil 56 % (42-75); Platelet Count 261 thou/uL (130-400); RBC Distribution Width 12.1 % (11.5-14.5); Red Blood Cell (RBC) Count 3.52 mill/uL (4.70-6.10); White Blood Cell (WBC) Count 16.7 thou/uL (4.8-10.8)
[2018-05-26] MEDS ORDERED: Potassium Phosphate 21 MMOL in Sodium Chloride 0.9% 250 ML 250 ML IVPB SCH (06:45)
[2018-05-26] MEDS: Pantoprazole 40 MG VIAL IVP SCH (08:02)
[2018-05-26] MEDS: Ondansetron PF 4 MG/2 ML Vial IVP PRN (08:02)
[2018-05-26] MEDS: Polyethylene Glycol 3350 17 GM Packet PO SCH (09:02)
[2018-05-26] MEDS: Enoxaparin Sodium 40 MG/0.4 ML SYRINGE SC SCH (09:03)
[2018-05-26] MEDS: Lisinopril 5 MG TAB PO SCH (09:04)
--- NOTE | 2018-05-26 09:45 | PRG ---
DATE OF SERVICE: 05/26/2018 SUBJECTIVE: The patient is seen and examined at the bedside. He is somewhat nauseated this morning. He did not vomit. He states that he had bowel movement large yesterday and a lot of gas. He notic ed that IV Tylenol helps his pain. OBJECTIVE: VITAL SIGNS: Blood pressure is 141/95, pulse is 101, temperature is 98.7, maximal temperature is 99. 5, pulse oximetry is 94% on room air. HEENT: His head is atraumatic and normocephalic. Eyes are PERRLA. Sclerae are nonicteric. Oral mu cosa is dry. NECK: Supple. LUNGS: Breath sounds diminished at both bases. No crackles or rales. HEART: S1 and S2 normal, tachycardic, no S3, no S4. ABDOMEN: Distended, swollen, and tender, much more tender in the lower parts than in the upper parts . Bowel sounds are present. Penis and the testicles are swollen like yesterday. EXTREMITIES: No clubbing, cyanosis, or edema. NEUROLOGICAL EXAMINATION: He is alert and oriented x4. There is not any sensorimotor deficits prese nt. Cranial nerves are intact. LABORATORY DATA: Labs showed a white count of 16.7, hemoglobin 11.0, hematocrit 33.3, platelet count 261. Normal electrolytes, normal creatinine, normal BUN. Phosphorus 1.6, total bilirubin down to 1 .2, ALT 59, AST 32, alkaline phosphatase 81, albumin 2.9, lipase 69. His CT of the abdomen was done yesterday and it showed progressive interstitial edematous pancreatitis without evidence of necrosis affecting also adjacent organs. Also, there was extensive third-spacing of fluid. IMPRESSION: 1. Post-endoscopic retrograde cholangiopancreatography pancreatitis. 2. Acute cholecystitis, status post laparoscopic cholecystectomy. 3. Choledocholithiasis. 4. Hypertension. 5. Anemia, secondary to current illness. 6. Hypophosphatemia. PLAN: Continue his lisinopril 5 mg once a day. His blood pressure is better. I agree with continua tion of current regimen at this point what is recommended per General surgery/GI team. We are going to continue cefoxitin. We will replace phosphorus and I encouraged him to do some walking and lay on his sides in the bed, not sitting for too long in the chair. We will continue close monitoring.
--- NOTE | 2018-05-26 13:08 | PRG ---
DATE OF SERVICE: 05/26/2018 SUBJECTIVE: Mr. Zimmerman is feeling slightly better today. He had a bowel movement, he is tolerating the clear liquids. He is afebrile and his vital signs are stable. He has got good urine output. Li misty tests continue to trend down. His scrotum is still swollen, but there is no evidence of skin avani akdown or infection. CT scan yesterday showed worsening inflammatory change around the pancreas as e xpected with his symptoms. ASSESSMENT: Pancreatitis post-ERCP. PLAN: Slow improvement. Continue clear liquids for now.
--- NOTE | 2018-05-26 13:30 | PRG ---
DATE OF SERVICE: 05/26/2018 REASON FOR CONSULTATION: Post-ERCP pancreatitis, choledocholithiasis. SUBJECTIVE: The patient was placed on both MiraLax and naloxegol yesterday and did have a larger yesica id bowel movement last night, which improved his pain somewhat. However, he does continue to have wo rsening of his lower abdominal pain today that is centered in the suprapubic region. Otherwise, he d id experience some mild nausea this morning that has since been managed with antiemetic medications. Currently, denies any vomiting, fevers, chills or GI bleeding. OBJECTIVE: VITAL SIGNS: Temperature 99, pulse 95, blood pressure 137/79, respiratory rate 20, satting 94% on ro om air. GENERAL: The patient was standing at the bedside, in moderate distress with visible pain, alert and oriented x4. CARDIOVASCULAR: Tachycardic rate, but regular rhythm. RESPIRATORY: Clear to auscultation bilaterally. ABDOMEN: Normoactive bowel sounds, soft, nondistended. Tenderness to palpation in the periumbilical , suprapubic, right lower and left lower quadrants. Significant ecchymoses remains around the umbili cus and extending into the suprapubic region. EXTREMITIES: 2+ bilateral lower extremity edema extending to mid thigh. LABORATORY DATA: CBC with a white blood cell count of 16.7, hemoglobin 11, hematocrit 33.3, platelet s 261,000. Chemistry with a sodium of 140, potassium 3.6, chloride 106, CO2 26, BUN 15, creatinine 0 .82, glucose 89, AST 32, ALT 59, alkaline phosphatase 81, total bilirubin 1.2, lipase 69. IMAGING DATA: CT of the abdomen and pelvis was obtained on 05/25/2018 showing recent cholecystectomy and perioperative changes; however, there was also extensive edema surrounding the peripancreatic an d uncinate process as well as extension of the inflammation until around the superior mesenteric vess els and superior mesenteric veins. At this time, it is indicative of progressive interstitial edemat ous pancreatitis without evidence of necrosis. ASSESSMENT AND PLAN: The patient is a 37-year-old male with past medical history of hyperte nsion presenting with cholecystitis with concern for choledocholithiasis in the postoperative period and subsequently underwent ERCP and now has post-ERCP pancreatitis. Choledocholithiasis/post-ERCP pancreatitis: The patient initially presented with elevated LFTs as we ll as cholelithiasis that prompted a laparoscopic cholecystectomy. In the postoperative period, he w as noted to have up trending transaminases concerning for choledocholithiasis. He subsequently under went ERCP on 05/21/2018 with some stone debris removed, but otherwise relatively common bile duct. U nfortunately, in the post-procedure period, he did develop post-ERCP pancreatitis as evidenced by inc reased abdominal pain and elevated lipase. He was placed on n.p.o. status as well as more conservati ve measures including IV fluids and a Dilaudid REIMBURSEMENT REPRESENTATIVE pump. While on this regimen, he did have worsenin g of his abdominal pain over the last 24-48 hours, but upon institution of a more powerful bowel dorothy men and having a bowel movement yesterday, his pain seems to be improving some. He does continue to have significant edema of the lower extremities and scrotum consistent with third spacing of the flui d, but does continue to have good urine output per Langley measurements. At this time, his abdominal p ain is most likely a combination of his post-ERCP pancreatitis and narcotic-induced constipation rela curry to his pain medications. RECOMMENDATIONS: 1. Continue IV fluids, given intolerance of oral intake. 2. Pain control per primary team. 3. Continue MiraLax and naloxegol administration as part of his bowel regimen to facilitate having a bowel movement. We will continue to follow. Please call with any questions.
[2018-05-26 14:24] LABS: Phosphorus 2.7 mg/dL (2.3-4.7)
[2018-05-27] MEDS: Acetaminophen 325 MG TAB PO PRN ×6 (00:27→22:23)
[2018-05-27] MEDS: cefOXitin 2 GM in Sodium Chloride 0.9% 100 ML IVPB SCH ×3 (00:27→18:09)
[2018-05-27] MEDS: HYDROmorphone 10 mg/100 ml CADD IVPB PRN ×2 (05:02→13:26)
--- NOTE | 2018-05-27 07:30 | PRG ---
DATE OF SERVICE: 05/27/2018 SUBJECTIVE: The patient states he feels better today, a little bit. His main complaint is scrotal s welling. PHYSICAL EXAMINATION: VITAL SIGNS: Temperature is 99.8, pulse 98, blood pressure 134/83. GENERAL: He is awake and alert. He is moving around. HEENT: No jaundice. LUNGS: Clear. HEART: Regular rate and rhythm. ABDOMEN: Soft. He has an extensive ecchymosis across the lower abdomen. LABORATORY DATA: His white count is 16.7, H&H of 11 and 33, platelet count 261. His electrolytes ar e fine. His bilirubin is back to normal. His ALT is 59. His lipase is down to 69. He is tolerating liquid diet. PLAN: A full liquid diet. We will check blood cultures because he did have a T-max of 101. We will start him on antibiotics.
[2018-05-27] MEDS: Polyethylene Glycol 3350 17 GM Packet PO SCH (09:40)
[2018-05-27] MEDS: Lisinopril 5 MG TAB PO SCH (09:40)
[2018-05-27] MEDS: Piperacillin/Tazobactam 3.375 GM in Sodium Chloride 0.9% 100 ML IVPB SCH ×3 (09:43→20:31)
[2018-05-27] MEDS: Pantoprazole 40 MG VIAL IVP SCH (09:43)
[2018-05-27] MEDS: Enoxaparin Sodium 40 MG/0.4 ML SYRINGE SC SCH (10:42)
--- NOTE | 2018-05-27 12:01 | PRG ---
DATE OF SERVICE: 05/27/2018 REASON FOR CONSULTATION: Post-ERCP pancreatitis secondary to choledocholithiasis. SUBJECTIVE: The patient states that his pain is minimally better this morning and was much improved last night with the administration of IV Tylenol. He also states that his pain improved temporarily with having a bowel movement that was solid to semisolid in consistency, but has not had any further bowel movements today. He does continue to have some intermittent nausea as well and is currently being controlled with antiemetic medications. Currently, denies any actual vomiting, fevers, chills or GI bleeding. OBJECTIVE: VITAL SIGNS: Temperature 98.2, pulse 91, blood pressure 156/99, respiratory rate 18, satting 96% on room air. GENERAL: The patient was sitting at bedside in mild to moderate distress with visible pain. Alert and oriented x4. CARDIOVASCULAR: Tachycardic rate, but regular rhythm. RESPIRATORY: Clear to auscultation bilaterally. ABDOMEN: Normoactive bowel sounds, soft, nondistended. Tenderness to palpation in the periumbilical, suprapubic, right and left lower quadrants. Significant ecchymoses remain around the umbilicus and extending into the suprapubic region. EXTREMITIES: 2+ bilateral lower extremity edema extending to mid thigh. LABORATORY DATA: No current studies are available for review. IMAGING DATA: No current GI imaging is available for review. ASSESSMENT AND PLAN: The patient is a 37-year-old male with past medical history of hypertension presenting with cholecystitis and concern for choledocholithiasis in the postoperative period now having post-ERCP pancreatitis. Choledocholithiasis/post-ERCP pancreatitis. The patient underwent ERCP on 05/21, given concern for choledocholithiasis and did have some stone debris removed, but otherwise was relatively clean common bile duct. Unfortunately, in the postoperative period, he did develop post ERCP pancreatitis that has been moderately controlled with Dilaudid METALLURGICAL INSPECTOR pump up to this day. He does have some mild improvement in his abdominal pain when compared to previous, but is still demanding a significant amount of Dilaudid for his METALLURGICAL INSPECTOR, but did experience some increased pain relief with IV Tylenol yesterday. With placement on a bowel regimen including MiraLax and naloxegol, he is now having approximately one solid bowel movement per day with improvement of his abdominal pain. At this time, his abdominal pain is most likely a combination of post ERCP pancreatitis, postsurgical change related to cholecystectomy and narcotic-induced constipation related to increased pain medication administration. RECOMMENDATIONS: 1. Agree with advancing the patient's diet as tolerated with discontinuation of fluids if possible. 2. Pain control per primary team, but would consider more frequent administration of IV Tylenol, which could potentially have a synergistic effect with the Dilaudid. 3. Continue MiraLax and naloxegol administration as part of his bowel regimen to facilitate having a bowel movement. We will continue to follow. Please call with any questions. DAMIAN
--- NOTE | 2018-05-27 15:45 | PDOC.PN ---
- Subjective Encounter Start Date: 05/27/18 Encounter Start Time: 15:43 Mr. Zimmerman was seen today in follow-up Pancreatitis. He is still having significant abdominal pain requiring a FUR POINTER pump. He also notes a bit of scrotal edema. - Objective MAR Reviewed: Yes Vital Signs & Weight: Vital Signs (12 hours) Temp Pulse Resp BP BP Pulse Ox 05/27/18 15:31 98.4 F 86 16 132/77 96 05/27/18 11:15 98.5 F 92 18 134/78 95 05/27/18 07:20 98.2 F 91 18 156/99 H 96 05/27/18 04:24 99.8 F H 98 18 134/83 95 Weight Weight 175 lb 0.047 oz I&O: 05/26/18 05/27/18 05/28/18 06:59 06:59 06:59 Intake Total 1170 3330 Output Total 2750 3500 Balance -1580 -170 Result Diagrams: 05/26/18 05:00 05/26/18 05:00 Phys Exam - Physical Examination Respiratory: no wheezing, no rales, no rhonchi, clear to auscultation bilateral Cardiovascular: RRR, no significant murmur, no rub Gastrointestinal: soft, non-tender, no distention, positive bowel sounds = scrotal edema, and some ecchymosis on the left flank Dx/Plan (1) Acute pancreatitis Code(s): K85.90 - ACUTE PANCREATITIS WITHOUT NECROSIS OR INFECTION, UNSP Status: Acute (2) Hypertension Code(s): I10 - ESSENTIAL (PRIMARY) HYPERTENSION Status: Acute (3) Scrotal edema Code(s): N50.89 - OTHER SPECIFIED DISORDERS OF THE MALE GENITAL ORGANS Status : Acute - Plan * Acute pancreatitis- following ERCP- continue pain control. * He has been advanced to a full liquid diet * HTN- blood pressure is controlled * Scrotal Edema- continue scrotal support
[2018-05-28] MEDS: cefOXitin 2 GM in Sodium Chloride 0.9% 100 ML IVPB SCH ×3 (00:30→17:11)
[2018-05-28] MEDS: Piperacillin/Tazobactam 3.375 GM in Sodium Chloride 0.9% 100 ML IVPB SCH ×4 (02:02→20:21)
[2018-05-28] MEDS: HYDROmorphone 10 mg/100 ml CADD IVPB PRN ×3 (02:03→22:56)
[2018-05-28] MEDS: Acetaminophen 325 MG TAB PO PRN ×3 (02:20→22:56)
[2018-05-28 06:49] LABS: Hemoglobin 10.9 g/dL (14.0-18.0); Mean Corpuscular HGB CONC 32.9 g/dL (32.0-36.0); Mean Corpuscular Hemoglobin 31.1 pg (27.0-31.0); Mean Corpuscular Volume 94.5 fL (78.0-98.0); Mean Platelet Volume 6.7 fL (7.4-10.4); Platelet Count 365 thou/uL (130-400); RBC Distribution Width 12.5 % (11.5-14.5); Red Blood Cell (RBC) Count 3.51 mill/uL (4.70-6.10); White Blood Cell (WBC) Count 21.3 thou/uL (4.8-10.8)
[2018-05-28 07:02] LABS: Anion Gap 13 mmol/L (10-20); BUN (Urea Nitrogen) 13 mg/dL (8.9-20.6); Calc. Creatinine Clearance 137 mL/min (70-130); Calcium 8.5 mg/dL (7.8-10.44); Carbon Dioxide 27 mmol/L (22-29); Chloride 104 mmol/L (98-107); Estimated GFR-MDRD Greater than 90; Glucose 86 mg/dL (70-105); Potassium 3.6 mmol/L (3.5-5.1); Sodium 140 mmol/L (136-145)
[2018-05-28 07:33] LABS: Band 7 % (5-11); Lymphocytes 11 % (21-51); MDiff Complete? YES; Monocytes 5 % (0-10); Neutrophil 76 % (42-75); PLT Morphology Comment Appears Adequate; Polychromasia SLIGHT = 2-3 cells (100X) (0-2/hpf)
--- NOTE | 2018-05-28 08:31 | PRG ---
DATE OF SERVICE: 05/28/2018 SUBJECTIVE: The patient reports that he is tired, just fatigued. His pain is better. He is not hav ing nausea. He denies any pain when he eats. PHYSICAL EXAMINATION: VITAL SIGNS: His temperature is 98.6, pulse 84, blood pressure 113/71. GENERAL: He looks more comfortable. He is awake, alert. ABDOMEN: His abdomen is still a little bit distended. The ecchymosis is better today. I do not see any definite cellulitis at this point, or if there was some, it is better. : His scrotal swelling is about the same. He says he is not wearing the athletic supporter all th e time. He takes it off frequently. I advised him that the longer he wears it, the better he will h ave support. LABORATORY DATA: His white count today is up to 21.3, his H&H is 10.9 and 33, platelet count of 365, his calcium is stable at 8.5. Electrolytes are fine. ASSESSMENT: Biliary pancreatitis related to endoscopic retrograde cholangiopancreatography. PLAN: Dietary consult. He may benefit from some peripheral supplementation of nutrition.
[2018-05-28] MEDS: Pantoprazole 40 MG VIAL IVP SCH (08:59)
[2018-05-28] MEDS: Polyethylene Glycol 3350 17 GM Packet PO SCH (09:00)
[2018-05-28] MEDS: Lisinopril 5 MG TAB PO SCH (09:00)
[2018-05-28] MEDS: Enoxaparin Sodium 40 MG/0.4 ML SYRINGE SC SCH (09:57)
--- NOTE | 2018-05-28 17:54 | PDOC.PN ---
- Subjective Encounter Start Date: 05/28/18 Encounter Start Time: 17:53 Mr. Zimmerman was seen today in follow-up of Pancreatitis. He says he continues to have some abdominal pain especially after eating. He has been ambulating. - Objective MAR Reviewed: Yes Vital Signs & Weight: Vital Signs (12 hours) Temp Pulse Resp BP BP BP Pulse Ox 05/28/18 15:40 98.3 F 87 18 145/97 H 97 05/28/18 11:47 98.3 F 99 20 131/76 96 05/28/18 09:00 99 153/90 H 05/28/18 07:50 99.9 F H 99 20 153/90 H 99 Weight Admit Weight 175 lb 0.047 oz Weight 175 lb 0.047 oz I&O: 05/27/18 05/28/18 05/29/18 06:59 06:59 06:59 Intake Total 3330 2230 Output Total 3500 1950 Balance -170 280 Result Diagrams: 05/28/18 05:40 05/28/18 05:40 Phys Exam - Physical Examination HEENT: PERRLA Respiratory: no wheezing, no rales, no rhonchi, clear to auscultation bilateral Cardiovascular: RRR, no significant murmur, no rub Gastrointestinal: soft, no distention, positive bowel sounds + difuse tenderness, no rebound or guarding Musculoskeletal: edema present 2-3 + pitting edema in both lower extermities and the groin Dx/Plan (1) Acute pancreatitis Code(s): K85.90 - ACUTE PANCREATITIS WITHOUT NECROSIS OR INFECTION, UNSP Status: Acute (2) Hypertension Code(s): I10 - ESSENTIAL (PRIMARY) HYPERTENSION Status: Acute (3) Scrotal edema Code(s): N50.89 - OTHER SPECIFIED DISORDERS OF THE MALE GENITAL ORGANS Status : Acute - Plan * Leukocytosis- ? etiology- he does not appear ill, and he has no fever- he is on antibiotics- follow-up with culture results, and continue to trend WBC count - if it continue to raise, then will check a CXR and Urine culture * Acute Pancreatitis- slowly resolving- he is currently on a full liquid diet * Continue to jackson pain medication as tolerated.
[2018-05-28] MEDS ORDERED: Furosemide 40 MG/4 ML VIAL SLOW IVP SCH (19:00)
--- NOTE | 2018-05-28 20:38 | EKG ---
Test Reason : Blood Pressure : / mmHG Vent. Rate : 114 BPM Atrial Rate : 114 BPM P-R Int : 162 ms QRS Dur : 088 ms QT Int : 316 ms P-R-T Axes : 053 128 013 degrees QTc Int : 435 ms Sinus tachycardia Right axis deviation Abnormal ECG Confirmed by DILIA BURTON (2) on 05/28/2018 8:38:25 PM Referred By: ALEXIA Confirmed By:DILIA BURTON
[2018-05-29] MEDS: cefOXitin 2 GM in Sodium Chloride 0.9% 100 ML IVPB SCH ×2 (00:38→08:46)
[2018-05-29] MEDS: Piperacillin/Tazobactam 3.375 GM in Sodium Chloride 0.9% 100 ML IVPB SCH ×4 (02:13→19:39)
[2018-05-29] MEDS: diphenhydrAMINE 25 MG CAP PO PRN (03:27)
[2018-05-29 05:56] LABS: ALT (SGPT) 35 U/L (8-55); AST (SGOT) 38 U/L (5-34); Albumin 2.5 g/dL (3.5-5.0); Alkaline Phosphatase 84 U/L (40-150); Anion Gap 12 mmol/L (10-20); BUN (Urea Nitrogen) 12 mg/dL (8.9-20.6); Bilirubin, Total 1.4 mg/dL (0.2-1.2); CRP (Inflammatory) 21.79 mg/dL (= or < 0.5); Calc. Creatinine Clearance 134 mL/min (70-130); Carbon Dioxide 27 mmol/L (22-29); Chloride 102 mmol/L (98-107); Estimated GFR-MDRD Greater than 90; Globulin 3.1 g/dL (2.4-3.5); Glucose 99 mg/dL (70-105); Lipase 242 U/L (8-78); Magnesium 1.9 mg/dL (1.6-2.6); Phosphorus 2.6 mg/dL (2.3-4.7); Potassium 3.2 mmol/L (3.5-5.1); Protein, Total 5.6 g/dL (6.0-8.3); Sodium 138 mmol/L (136-145)
[2018-05-29 05:58] LABS: Band 32 % (5-11); Eosinophils 1 % (0-10); Hemoglobin 9.9 g/dL (14.0-18.0); Lymphocytes 7 % (21-51); MDiff Complete? YES; Mean Corpuscular HGB CONC 33.2 g/dL (32.0-36.0); Mean Corpuscular Hemoglobin 31.2 pg (27.0-31.0); Mean Platelet Volume 6.5 fL (7.4-10.4); Metamyelocyte 4 % (0-0); Monocytes 9 % (0-10); Myelocyte 1 % (0-0); Neutrophil 46 % (42-75); Platelet Count 370 thou/uL (130-400); RBC Distribution Width 12.6 % (11.5-14.5); Red Blood Cell (RBC) Count 3.17 mill/uL (4.70-6.10); White Blood Cell (WBC) Count 20.1 thou/uL (4.8-10.8)
[2018-05-29] MEDS ORDERED: Potassium Chloride 20 MEQ TAB PO SCH ×2 (08:00→18:00)
--- NOTE | 2018-05-29 08:28 | PDOC.PN ---
- Subjective Encounter Start Date: 05/29/18 Encounter Start Time: 08:26 Mr. Zimmerman was seen today in follow-up of Pancreatitis. He says he feel much better today. He has less swelling. He has been able to tolerate a full liquid diet. - Objective MAR Reviewed: Yes Vital Signs & Weight: Vital Signs (12 hours) Temp Pulse Resp BP BP Pulse Ox 05/29/18 04:30 98.8 F 87 20 115/68 96 05/29/18 00:30 98.4 F 05/29/18 00:00 100.5 F H 97 20 146/68 H 97 Weight Admit Weight 175 lb 0.047 oz Weight 193 lb 4.8 oz I&O: 05/28/18 05/29/18 05/30/18 06:59 06:59 06:59 Intake Total 2230 2160 Output Total 1950 4025 Balance 280 -1865 Result Diagrams: 05/29/18 05:09 05/29/18 05:09 Phys Exam - Physical Examination HEENT: PERRLA Respiratory: no wheezing, no rales, no rhonchi, clear to auscultation bilateral Cardiovascular: RRR, no significant murmur, no rub Gastrointestinal: soft, non-tender, no distention, positive bowel sounds Musculoskeletal: edema present 1+ edema, but improved from yesterday Neurological: non-focal, moves all 4 limbs Dx/Plan (1) Leukocytosis Code(s): D72.829 - ELEVATED WHITE BLOOD CELL COUNT, UNSPECIFIED Status: Acute (2) Hypertension Code(s): I10 - ESSENTIAL (PRIMARY) HYPERTENSION Status: Acute (3) Acute pancreatitis Code(s): K85.90 - ACUTE PANCREATITIS WITHOUT NECROSIS OR INFECTION, UNSP Status: Acute (4) Scrotal edema Code(s): N50.89 - OTHER SPECIFIED DISORDERS OF THE MALE GENITAL ORGANS Status : Acute - Plan * Leukocytosis- his WBC count is still elevated- but he clinically appears well. He has some fever, so will check a UA and Urine culture and CXR as a precaution. Blood cultures are negative- this could represent a viral illness * HTN- blood pressure has been labile but overall within acceptable range * Pancreatitis- slowly improving- his diet has been advanced to a low fat diet.
[2018-05-29] MEDS: Polyethylene Glycol 3350 17 GM Packet PO SCH ×2 (08:44→08:55)
[2018-05-29] MEDS: Pantoprazole 40 MG VIAL IVP SCH (08:44)
[2018-05-29] MEDS: Lisinopril 5 MG TAB PO SCH (08:44)
[2018-05-29] MEDS: Enoxaparin Sodium 40 MG/0.4 ML SYRINGE SC SCH (09:31)
[2018-05-29 09:59] LABS: Bilirubin Negative (Negative); Blood, Urine Moderate (Negative); Clarity CLEAR (Clear); Glucose, Urine (Dipstick) Negative (Negative); Leukocyte Negative (Negative); Nitrite Negative (Negative); Protein, Urine (Dipstick) 30 mg/dL (Neg-Trace); Specific Gravity, Urine 1.021 (1.002-1.036); Urobilinogen 0.2 mg/dL (0.2-1.0); pH, Urine 6.5 (5.0-9.0)
[2018-05-29 10:02] LABS: Bacteria/HPF None Seen HPF (None Seen); Hyaline Casts/LPF 0-3 HYALINE CAST LPF (0-3 Hyaline); Pathc Cast-AUWi Flag 0.29 (0-2.49); RBC/HPF 21-50 HPF (0-3); Squamous Epithelial 0-3 HPF (0-3)
[2018-05-29] MEDS: HYDROmorphone 10 mg/100 ml CADD IVPB PRN ×2 (11:24→19:35)
--- NOTE | 2018-05-29 11:40 | PRG ---
DATE OF SERVICE: 05/29/2018 SUBJECTIVE: The patient feels much better today. Pain is improved. Swelling has improved especially around his scrotum and penis. Still has catheter in. He still has a quite of bit of edema. OBJECTIVE: VITAL SIGNS: His temperature is 98.8. He did have a T-max of 100.5. His pulse 87 and blood pressure 115/68. GENERAL: He looks much more comfortable. He is up walking around. ABDOMEN: Less distended. He was given some Lasix yesterday and he put up 4000 of urine. LABORATORY DATA: His white count is 20,000 down from 21,000. Hemoglobin and hematocrit 9.9 and 29.8, and platelets count 370. His potassium is little low at 3.2. T-bili was 1.4. His lipase was 242. ASSESSMENT: Slow improvement, biliary pancreatitis. PLAN: One more day of the catheter. Hopefully, can get it out tomorrow and then hopefully, switch into p.o. pain medications. Job ID: [id number]
--- NOTE | 2018-05-29 12:24 | RAD ---
2 VIEW CHEST: Date: 05/29/18 INDICATION: Fever. FINDINGS: There are patchy bibasilar densities. Lungs are hypoinflated. Cardiac silhouette is accentuated, as a result. Metallic clips are seen at the right upper abdomen. IMPRESSION: Bibasilar densities indicating pneumonitis and/or atelectasis. Recommend continued follow-up to abner huston. POS: [facility]
--- NOTE | 2018-05-29 13:00 | PRG ---
DATE OF SERVICE: 05/28/2018 SUBJECTIVE: Mr. Zimmerman 's pain is markedly an issue as well as scrotal edema and pedal edema, and his scrotum and feet are elevated. MEDICATIONS: He is on cefoxitin, Zosyn, Protonix, MiraLax, full liquids. He states he is hungry. OBJECTIVE: VITAL SIGNS: Temperature is 98, T-max 99.0, pulse 87, blood pressure 145/97. In's and out's are 2230 yesterday and 250 out. Weight 175 today. LUNGS: Clear. HEART: Regular rate and rhythm. No rubs, gallops, or murmurs. ABDOMEN: Slightly protuberant. There is scrotal edema. There are bowel sounds. There is no evidence of crepitus. EXTREMITIES: There is extremity edema, pitting. LABORATORY DATA: White count is 21,000, hemoglobin is 10.9, platelet count 365 with 76 segs, 7% bands. Sodium 140, potassium 3.6, BUN and creatinine of 13 and 0.83. Calcium 6.5. On the , liver function and lipase were normal. ASSESSMENT: Pancreatitis, post endoscopic retrograde cholangiopancreatography, moderate to severe but there have been no signs of necrotizing pancreatitis on his CAT scan. He has quite bit of anasarca and fluid in his legs and this is partly due to aggressive fluid resuscitation. There have been no signs of infection. He has had a leukocytosis, slight, and low grade fever likely related to the pancreatitis. RECOMMENDATIONS: 1. Continue antibiotics unless cultures become positive. 2. Diurese aggressively. 3. Daily weights. 4. Repeat labs in the morning. 5. Hopefully, we can get him diuresed, we can get him home in the next couple of days. Job ID: [id number]
[2018-05-29] MEDS ORDERED: DEXTROSE ISO IVPB SCH (17:00)
[2018-05-29] MEDS ORDERED: CEFOXITIN SODIUM IVPB SCH (17:00)
[2018-05-29] MEDS ORDERED: Furosemide 40 MG/4 ML VIAL SLOW IVP SCH (17:30)
--- NOTE | 2018-05-29 17:32 | PDOC.EVN ---
Event Note - Event Note Event Note: Chest X-ray was reviewed. It is being read as bilateral pneumonitis- I suspect this is more from volume overload than from Pneumonia- He does not have a cough , and his WBC count is beginning to trend down. Will hold off on adding/ changing antibiotics at this time. Will re-check his WBC count in the AM.
--- NOTE | 2018-05-29 19:57 | PRG ---
DATE OF SERVICE: 05/29/2018 SUBJECTIVE: Mr. Zimmerman feels little bit better today. He is eating little bit better. He eats some solid food. OBJECTIVE: VITAL SIGNS: T-max is 99.3 today, overnight it was 100.5, temperature at present 99.3. Pulse 98 to 90, blood pressure 131/84. His weight of 193 today; it was 175 on admission. In's and out's were negative 1.865 L yesterday. HEENT: Oropharyngeal lesions. Neck: Supple. No adenopathy. LUNGS: Clear. HEART: Regular rate and rhythm. ABDOMEN: Soft, nontender. There is some mild suprapubic tenderness especially when he has bowel movement. He has no diarrhea he states. Bowel sounds are positive. Ecchymosis from the umbilical area is improving. Scrotal edema is improving. EXTREMITIES: Peripheral edema is improving. LABORATORY DATA: Sodium 138, potassium 3.2, BUN and creatinine of 12 and 0.85. Bilirubin 1.4, AST 38, ALT is 35. CRP is 21. Lipase is 242. White count 20, hemoglobin 9.9, platelet count 370, 32% bands still. ASSESSMENT: 1. Severe pancreatitis, post endoscopic retrograde cholangiopancreatography with no signs of necrosis on imaging. No signs of abscess or inflammatory collections. 2. Leukocytosis, likely related to the systemic inflammatory response syndrome from pancreatitis. The patient was started on antibiotics over the weekend with Zosyn that was on 05/27. 3. Mild hypokalemia. 4. Good response to diuretic. 5. Overall, the patient is markedly improved from just few days ago. RECOMMENDATIONS: 1. We will give him low dose of Lasix today to help hopefully, if we can get his scrotal edema to improve and get his Langley catheter out. 2. No signs of infection presently with no evidence of abscess or phlegmon on CT. No signs of necrotic pancreatitis. Negative blood cultures and urine cultures. We will go and stop the cefoxitin. He has been on that for 8 days now. 3. Lasix 40 mg once daily. Potassium this evening replacement. 4. Repeat labs tomorrow. Job ID: [id number]
[2018-05-29] MEDS: diphenhydrAMINE 50 MG/ML VIAL IVP PRN (22:37)
[2018-05-30] MEDS: Piperacillin/Tazobactam 3.375 GM in Sodium Chloride 0.9% 100 ML IVPB SCH ×4 (02:39→20:19)
[2018-05-30] MEDS: HYDROmorphone 10 mg/100 ml CADD IVPB PRN (04:44)
[2018-05-30 05:53] LABS: Anion Gap 8 mmol/L (10-20); BUN (Urea Nitrogen) 11 mg/dL (8.9-20.6); Calc. Creatinine Clearance 149 mL/min (70-130); Calcium 7.9 mg/dL (7.8-10.44); Carbon Dioxide 30 mmol/L (22-29); Chloride 102 mmol/L (98-107); Estimated GFR-MDRD Greater than 90; Glucose 97 mg/dL (70-105); Lipase 284 U/L (8-78); Potassium 3.3 mmol/L (3.5-5.1); Sodium 137 mmol/L (136-145)
[2018-05-30 06:06] LABS: Band 21 % (5-11); Eosinophils 1 % (0-10); Hemoglobin 9.4 g/dL (14.0-18.0); Lymphocytes 3 % (21-51); MDiff Complete? YES; Mean Corpuscular HGB CONC 33.2 g/dL (32.0-36.0); Mean Corpuscular Hemoglobin 31.4 pg (27.0-31.0); Mean Corpuscular Volume 94.5 fL (78.0-98.0); Mean Platelet Volume 6.2 fL (7.4-10.4); Monocytes 4 % (0-10); Neutrophil 71 % (42-75); PLT Morphology Comment Appears Adequate; Platelet Count 393 thou/uL (130-400); RBC Distribution Width 12.5 % (11.5-14.5); Red Blood Cell (RBC) Count 2.99 mill/uL (4.70-6.10); White Blood Cell (WBC) Count 20.4 thou/uL (4.8-10.8)
[2018-05-30] MEDS: Potassium Chloride 20 MEQ TAB PO SCH (09:08)
[2018-05-30] MEDS: Pantoprazole 40 MG VIAL IVP SCH (09:09)
[2018-05-30] MEDS: Polyethylene Glycol 3350 17 GM Packet PO SCH (09:09)
[2018-05-30] MEDS: Enoxaparin Sodium 40 MG/0.4 ML SYRINGE SC SCH (09:09)
[2018-05-30] MEDS: Lisinopril 5 MG TAB PO SCH (09:09)
[2018-05-30] MEDS ORDERED: DC PCA Order Set 1 EACH FS ONE (10:56)
[2018-05-30] MEDS ORDERED: HYDROcodone/Acetaminophen 10/325 mg Tablet PO PRN ×2 (10:56)
[2018-05-30] MEDS ORDERED: oxyCODONE/Acetaminophen 5 mg/325 mg Tablet PO PRN ×2 (10:59)
[2018-05-30] MEDS ORDERED: Furosemide 40 MG/4 ML VIAL SLOW IVP SCH (11:00)
--- NOTE | 2018-05-30 13:52 | PDOC.PN ---
- Subjective Encounter Start Date: 05/30/18 Encounter Start Time: 13:50 was seen today in follow-up of Pancreatits. He says he is doing better today, tolerating a solid diet. He is just concerned about the swelling in his extremities. - Objective MAR Reviewed: Yes Vital Signs & Weight: Vital Signs (12 hours) Temp Pulse Resp BP BP BP Pulse Ox 05/30/18 11:58 98.9 F 92 16 132/82 96 05/30/18 09:09 94 119/72 05/30/18 08:05 94 L 05/30/18 08:00 98.1 F 94 16 119/72 94 L 05/30/18 04:00 99 F 93 20 120/78 93 L Weight Admit Weight 175 lb 0.047 oz Weight 188 lb I&O: 05/29/18 05/30/18 05/31/18 06:59 06:59 06:59 Intake Total 2160 2630 600 Output Total 4025 4425 Balance -1865 -1795 600 Result Diagrams: 05/30/18 05:17 05/30/18 05:17 Phys Exam - Physical Examination HEENT: PERRLA Respiratory: no wheezing, no rales, no rhonchi, clear to auscultation bilateral Cardiovascular: RRR, no significant murmur, no rub Gastrointestinal: soft, non-tender, no distention, positive bowel sounds Musculoskeletal: edema present 2+ pitting edema in both lower extremities, and groin Neurological: non-focal, moves all 4 limbs Dx/Plan (1) Acute pancreatitis Code(s): K85.90 - ACUTE PANCREATITIS WITHOUT NECROSIS OR INFECTION, UNSP Status: Acute (2) Hypertension Code(s): I10 - ESSENTIAL (PRIMARY) HYPERTENSION Status: Acute (3) Scrotal edema Code(s): N50.89 - OTHER SPECIFIED DISORDERS OF THE MALE GENITAL ORGANS Status : Acute - Plan * Acute Pancreatits- improving- tolerating a solid diet * HTN- blood pressure is controlled * Lower extremity edema- continue Lasix as needed, and mobilize. * Leukocytosis- stable * Hopefully home soon
[2018-05-30] MEDS: Ondansetron PF 4 MG/2 ML Vial IVP PRN (15:40)
[2018-05-30] MEDS: Promethazine HCl 25 MG/ML VIAL SLOW IVP PRN (17:33)
[2018-05-30] MEDS: Fentanyl 100 MCG/2 ML VIAL SLOW IVP PRN ×3 (17:34→22:56)
[2018-05-30] MEDS: diphenhydrAMINE 25 MG CAP PO PRN (20:41)
--- NOTE | 2018-05-30 23:31 | PRG ---
DATE OF SERVICE: 05/30/2018 SUBJECTIVE: Mr. Zimmerman has done actually very well up until about 40 minutes ago, then he began to have abdominal pain in the suprapubic region. OBJECTIVE: VITAL SIGNS: T-max 100.5 that was at midnight. It has been 98 since then, 99 at 4 a.m. He is eating a regular diet. Temperature 98, pulse 92, blood pressure 118/72. In's and out's were [id number] yesterday and 1795 last night. GENERAL: He is resting in bed with his legs elevated. He is a little bit uncomfortable. HEENT: Oropharynx is moist. NECK: Supple. LUNGS: Clear. HEART: Regular rate and rhythm. ABDOMEN: Slightly tender in the suprapubic area, but not in the epigastrium. EXTREMITIES: He has visual trace edema. LABORATORY DATA: White count 20,000, hemoglobin 9.4, platelet count 393, 21% segs dropped down from 40% on the . Sodium 137, potassium 3.3, chloride 102, bicarb 30. BUN and creatinine of 11 and 0.84. Lipase is 284. ASSESSMENT: 1. Post endoscopic retrograde cholangiopancreatography pancreatitis, slowly improving. There have been no signs of phlegmon or necrotizing pancreatitis. 2. Leukocytosis, likely related to the pancreatitis. There was no sign of infection with negative cultures, negative urine. 3. Suprapubic abdominal pain constipation or slight flare up of his pancreatitis or the roman catheter. Nurse to give him some hydrocodone. RECOMMENDATIONS: 1. Go back to full liquids until his pain goes away. 2. Repeat labs in the morning. 3. Replace potassium. 4. I think again if his cultures remain negative, his antibiotics can be stopped. 5. We will hold off on his diuretic today haven given daily for the last 3 days secondary to his abdominal discomfort to make sure he is not getting dehydrated at all. I will continue diuresis tomorrow. Job ID: [id number]
[2018-05-31] MEDS: Piperacillin/Tazobactam 3.375 GM in Sodium Chloride 0.9% 100 ML IVPB SCH ×3 (02:40→13:56)
[2018-05-31] MEDS: Ondansetron PF 4 MG/2 ML Vial IVP PRN (04:00)
[2018-05-31 06:11] LABS: #Eosinphils 0.1 thou/uL (0.0-0.7); #Lymphocytes 1.4 thou/uL (1.20-3.40); #Neutrophils 16.5 thou/uL (1.40-6.50); %Basophils 0.1 % (0.0-1.0); %Eosinophils 0.4 % (0.0-10.0); %Lymphocytes 7.2 % (21.0-51.0); %Monocytes 5.3 % (0.0-10.0); Hemoglobin 10.1 g/dL (14.0-18.0); Mean Corpuscular HGB CONC 32.7 g/dL (32.0-36.0); Mean Corpuscular Hemoglobin 30.8 pg (27.0-31.0); Mean Corpuscular Volume 94.2 fL (78.0-98.0); Mean Platelet Volume 6.6 fL (7.4-10.4); Platelet Count 522 thou/uL (130-400); RBC Distribution Width 12.5 % (11.5-14.5); Red Blood Cell (RBC) Count 3.28 mill/uL (4.70-6.10); White Blood Cell (WBC) Count 18.9 thou/uL (4.8-10.8)
[2018-05-31 06:16] LABS: Anion Gap 10 mmol/L (10-20); BUN (Urea Nitrogen) 11 mg/dL (8.9-20.6); Calc. Creatinine Clearance 140 mL/min (70-130); Calcium 8.4 mg/dL (7.8-10.44); Carbon Dioxide 29 mmol/L (22-29); Chloride 101 mmol/L (98-107); Estimated GFR-MDRD Greater than 90; Glucose 102 mg/dL (70-105); Lipase 369 U/L (8-78); Magnesium 2.2 mg/dL (1.6-2.6); Phosphorus 3.1 mg/dL (2.3-4.7); Potassium 3.8 mmol/L (3.5-5.1); Sodium 136 mmol/L (136-145)
[2018-05-31] MEDS: Pantoprazole 40 MG VIAL IVP SCH (08:33)
[2018-05-31] MEDS: Enoxaparin Sodium 40 MG/0.4 ML SYRINGE SC SCH ×2 (08:33→08:41)
[2018-05-31] MEDS: Potassium Chloride 20 MEQ TAB PO SCH (08:34)
[2018-05-31] MEDS: Polyethylene Glycol 3350 17 GM Packet PO SCH (08:34)
[2018-05-31] MEDS: Lisinopril 5 MG TAB PO SCH ×2 (08:34→08:42)
[2018-05-31] MEDS: Fentanyl 100 MCG/2 ML VIAL SLOW IVP PRN (10:40)
[2018-05-31] MEDS: Promethazine HCl 25 MG/ML VIAL SLOW IVP PRN (11:03)
[2018-05-31] MEDS ORDERED: Heparin 1,000 UNITS/ML VIAL ONE (11:11)
[2018-05-31] MEDS ORDERED: Sodium Chloride 0.9% 1,000 ML IV SCH (12:00)
[2018-05-31] MEDS: D5 1/2 NS w/20 mEq KCL 1,000 ML IV SCH (12:00)
[2018-05-31] MEDS ORDERED: Zolpidem Tartrate 5 MG TAB PO PRN (12:52)
[2018-05-31] MEDS ORDERED: Ondansetron PF 4 MG/2 ML Vial IVP PRN (12:52)
[2018-05-31] MEDS ORDERED: diphenhydrAMINE 25 MG CAP PO PRN (12:52)
[2018-05-31] MEDS ORDERED: diphenhydrAMINE 50 MG/ML VIAL IM/IV PRN (12:52)
[2018-05-31] MEDS ORDERED: Naloxone HCl 0.4 mg/ml Vial IV PRN (12:52)
[2018-05-31] MEDS ORDERED: Promethazine HCl 25 MG/ML VIAL IM PRN (12:52)
--- NOTE | 2018-05-31 13:04 | PRG ---
DATE OF SERVICE: 05/31/2018 SUBJECTIVE: The patient was doing much better yesterday, so we decide to try take him off his [employer] and starting some p.o. meds. Initially, we tried hydrocodone, but it was not strong enough. We switched him to oxycodone and he developed severe nausea and vomiting. Since then, he has continued to be vomiting and is not taking anything p.o. He says his pain is not that much worse. It is mainly the vomiting. OBJECTIVE: VITAL SIGNS: On examination, his temperature is 98.7, pulse 85, blood pressure 129/79. GENERAL: He is curled up in position. He will wake up. ABDOMEN: Soft, very minimal tenderness. No peritoneal signs. Not really distended. He has had a bowel movement. GENITOURINARY: He is urinating very well. LABORATORY DATA: His white count is 18.9, which is actually down from 20 yesterday, H and H 10 and 30, platelet count of 522. Electrolytes look okay. His lipase is 369. ASSESSMENT: Vomiting probably due to the oxycodone. PLAN: We will resume the [employer] pump. We will ask for PICC line and TPN until he can take p.o. Job ID: [id number]
--- NOTE | 2018-05-31 14:44 | PDOC.PN ---
- Subjective Encounter Start Date: 05/31/18 Encounter Start Time: 07:40 Pt seen for followup re: hypertension. Reports lower abdo pain, nausea and vomiting. - Objective MAR Reviewed: Yes Vital Signs & Weight: Vital Signs (12 hours) Temp Pulse Resp BP Pulse Ox 05/31/18 11:42 98.3 F 76 18 124/81 97 05/31/18 08:42 85 05/31/18 08:30 93 L 05/31/18 07:48 98.7 F 74 20 129/79 93 L 05/31/18 04:00 97.9 F 85 16 137/84 95 Weight Admit Weight 175 lb 0.047 oz Weight 161 lb 9.6 oz I&O: 05/30/18 05/31/18 06/01/18 06:59 06:59 06:59 Intake Total 2630 1460 Output Total 4483 4700 775 [facility] -1795 -2090 -775 Result Diagrams: 05/31/18 05:24 05/31/18 05:24 Additional Labs: Labs reviewed by me Phys Exam - Physical Examination Constitutional: NAD HEENT: moist MMs Neck: supple Respiratory: clear to auscultation bilateral Cardiovascular: RRR Gastrointestinal: positive bowel sounds mild lower abdo tenderness, no guarding or rigidity Neurological: moves all 4 limbs Psychiatric: normal affect Dx/Plan (1) Hypertension Code(s): I10 - ESSENTIAL (PRIMARY) HYPERTENSION Status: Chronic Comment: BP controlled today (2) Cholecystitis Code(s): K81.9 - CHOLECYSTITIS, UNSPECIFIED Status: Acute Comment: s/p cholecystectomy, pt is on IV Zosyn (3) Acute pancreatitis Code(s): K85.90 - ACUTE PANCREATITIS WITHOUT NECROSIS OR INFECTION, UNSP Status: Acute Comment: post ERCP-pancreatitis. Pain control per primary service - Plan * . Review of Systems - Review of Systems Cardiovascular: negative: chest pain, palpitations, orthopnea, paroxysmal nocturnal dyspnea, edema, light headedness Gastrointestinal: Nausea, Vomiting, Abdominal Pain. negative: Diarrhea, Constipation, Melena, Hematochezia - Medications/Allergies Allergies/Adverse Reactions: Allergies Allergy/AdvReac Type Severity Reaction Status Date / Time No Known Drug Allergies Allergy Verified 05/20/18 03:51 Medications: Current Medications Acetaminophen (Tylenol) 650 mg PO Q4H PRN PRN Reason: Fever Last Admin: 05/28/18 22:56 Dose: 650 mg Al Hydroxide/Mg Hydroxide (Maalox) 15 ml PO Q6H PRN PRN Reason: Dyspepsia Last Admin: 05/24/18 00:30 Dose: 15 ml Albuterol/Ipratropium (Duoneb) 3 ml NEB Q4H PRN PRN Reason: Wheezing Bisacodyl (Dulcolax) 10 mg OH DAILYPRN PRN PRN Reason: Constipation Last Admin: 05/21/18 20:19 Dose: 10 mg Calcium Carbonate (Tums) 1,000 mg PO Q4H PRN PRN Reason: Dyspepsia Dextrose/Water (Dextrose 50%) 25 gm SLOW IVP PRN PRN PRN Reason: Hypoglycemia Diphenhydramine HCl (Benadryl) 25 mg IM/IV Q3H PRN PRN Reason: Itching Diphenhydramine HCl (Benadryl) 25 mg PO Q3H PRN PRN Reason: Itching Enoxaparin Sodium (Lovenox) 40 mg SC 0900 [facility] Last Admin: 05/31/18 08:41 Dose: Not Given Glucagon (Glucagon) 1 mg IM PRN PRN PRN Reason: Hypoglycemia Hydralazine HCl (Apresoline) 10 mg SLOW IVP Q4H PRN PRN Reason: SBP > 170 or DBP > 100 Last Admin: 05/25/18 11:49 Dose: 10 mg Hydromorphone HCl (Dilaudid Cadd) 0 mg IV INF PRN PRN Reason: Pain Dextrose/Water (D5w) 1,000 mls @ 0 mls/hr IV .Q0M PRN PRN Reason: Hypoglycemia Piperacillin Sod/Tazobactam (Sod 3.375 gm/ Sodium Chloride) 100 mls @ 200 mls/ hr IVPB 0200,0800,1400,2000 [facility] Last Admin: 05/31/18 13:56 Dose: Not Given Potassium Chloride/Dextrose/Sod Cl (D5 1/2 Ns W/20 Meq Kcl) 1,000 mls @ 125 mls /hr IV .Q8H [facility] Last Admin: 05/31/18 12:00 Dose: 1,000 mls Lisinopril (Zestril) 5 mg PO DAILY [facility] Last Admin: 05/31/18 08:42 Dose: Not Given Miscellaneous Medication (Movantik) 25 mg PO DAILY-AC [facility] Last Admin: 05/31/18 08:41 Dose: Not Given Naloxone HCl (Narcan) 0.2 mg IV Q5MIN PRN PRN Reason: RR <8 or pt obtun/unarousable Ondansetron HCl (Zofran) 4 mg IVP Q6H PRN PRN Reason: Nausea/Vomiting Pantoprazole Sodium (Protonix) 40 mg IVP DAILY [facility] Last Admin: 05/31/18 08:33 Dose: 40 mg Polyethylene Glycol (Miralax) 17 gm PO DAILY [facility] Last Admin: 05/31/18 08:34 Dose: Not Given Potassium Chloride (K-Dur) 20 meq PO QAM-[facility] Last Admin: 05/31/18 08:34 Dose: Not Given Promethazine HCl (Phenergan) 12.5 mg IM Q4H PRN PRN Reason: Nausea/Vomiting Sodium Chloride (Flush - Normal Saline) 10 ml IVF Q12HR [facility] Last Admin: 05/31/18 08:34 Dose: 10 ml Sodium Chloride (Flush - Normal Saline) 10 ml IVF PRN PRN PRN Reason: Saline Flush Zolpidem Tartrate (Ambien) 5 mg PO HSPRN PRN PRN Reason: Insomnia Last Admin: 05/25/18 21:24 Dose: 5 mg Zolpidem Tartrate (Ambien) 5 mg PO HSPRN PRN PRN Reason: Insomnia
[2018-05-31] MEDS: HYDROmorphone 10 mg/100 ml CADD IV PRN (15:42)
--- NOTE | 2018-05-31 18:02 | SPC ---
ULTRASOUND AND FLUOROSCOPIC GUIDED LEFT UPPER EXTREMITY PICC LINE PLACEMENT: 05/31/18 INDICATION: Need for fdc IV access and TPN. TECHNIQUE: Informed consent was obtained. The left upper extremity was prepped and draped in the usual sterile f ashion. Buffered 1% lidocaine was administered overlying the subcutaneous tissues. Under ultrasound g uidance, a micropuncture access kit was utilized to gain access to the left basilic vein. Guide wire was advanced into the level of the IVC. 5 Frisian catheter sheath was then placed. Following this, a d ual lumen PICC line trimmed to 45 cm was guided over the wire and through the sheath. The sheath and wire were removed. The catheter flushed and aspirated appropriately. Tip of the catheter flushed and aspirated appropriately. A tip of the catheter is seen at the SVC/right atrial junction. Total exposu re was 2345 mGy*cm2 with total fluoroscopic time of 0.3 minutes. Patient tolerated the procedure with out difficulty. IMPRESSION: Successful fluoroscopic and ultrasound guided left upper extremity PICC line placement. POS: [facility]
[2018-05-31] MEDS: Metoclopramide HCl 10 MG/2 ML VIAL IVP PRN (19:16)
[2018-05-31] MEDS: Multivitamins, Adult 10 ML, Multitrace-5 5 ML in D15W-AA 5% with Lytes 2,000 ML IV SCH (22:15)
[2018-06-01] MEDS: Metoclopramide HCl 10 MG/2 ML VIAL IVP PRN ×2 (02:10→19:37)
[2018-06-01 06:38] LABS: ALT (SGPT) 29 U/L (8-55); AST (SGOT) 39 U/L (5-34); Albumin 2.8 g/dL (3.5-5.0); Alkaline Phosphatase 76 U/L (40-150); Anion Gap 10 mmol/L (10-20); BUN (Urea Nitrogen) 8 mg/dL (8.9-20.6); Bilirubin, Total 1.2 mg/dL (0.2-1.2); Calc. Creatinine Clearance 136 mL/min (70-130); Carbon Dioxide 25 mmol/L (22-29); Chloride 103 mmol/L (98-107); Estimated GFR-MDRD Greater than 90; Globulin 3.8 g/dL (2.4-3.5); Glucose 124 mg/dL (70-105); Lipase 548 U/L (8-78); Potassium 3.6 mmol/L (3.5-5.1); Protein, Total 6.6 g/dL (6.0-8.3); Sodium 134 mmol/L (136-145)
[2018-06-01] MEDS: Potassium Chloride 20 MEQ TAB PO SCH ×2 (08:52→09:43)
[2018-06-01] MEDS: Pantoprazole 40 MG VIAL IVP SCH (09:41)
[2018-06-01] MEDS: Enoxaparin Sodium 40 MG/0.4 ML SYRINGE SC SCH (09:42)
[2018-06-01] MEDS: Lisinopril 5 MG TAB PO SCH (09:42)
[2018-06-01] MEDS: Polyethylene Glycol 3350 17 GM Packet PO SCH (09:42)
--- NOTE | 2018-06-01 12:55 | PDOC.PN ---
- Subjective Encounter Start Date: 06/01/18 Encounter Start Time: 08:20 Pt seen for followup re: hypertension. c/o nausea. Denies chest pain. - Objective MAR Reviewed: Yes Vital Signs & Weight: Vital Signs (12 hours) Temp Pulse Resp BP BP BP Pulse Ox 06/01/18 11:35 98 F 79 20 136/83 98 06/01/18 09:42 75 134/89 06/01/18 07:50 98.4 F 75 24 H 134/89 97 06/01/18 07:45 97 06/01/18 03:53 98.6 F 74 18 121/78 96 Weight Admit Weight 175 lb 0.047 oz Weight 161 lb 9.6 oz I&O: 05/31/18 06/01/18 06/02/18 06:59 06:59 06:59 Intake Total 1460 1875 1500 Output Total 3550 2550 1925 Balance -2090 -675 -425 Result Diagrams: 05/31/18 05:24 06/01/18 05:46 Additional Labs: Accuchecks 06/01/18 11:39 POC Glucose 140 H Labs reviewed by me Phys Exam - Physical Examination Constitutional: NAD HEENT: moist MMs Neck: supple Respiratory: clear to auscultation bilateral Cardiovascular: RRR Gastrointestinal: soft Neurological: moves all 4 limbs Psychiatric: normal affect Dx/Plan (1) Hypertension Code(s): I10 - ESSENTIAL (PRIMARY) HYPERTENSION Status: Chronic Comment: controlled (2) Cholecystitis Code(s): K81.9 - CHOLECYSTITIS, UNSPECIFIED Status: Acute Comment: s/p cholecystectomy (3) Acute pancreatitis Code(s): K85.90 - ACUTE PANCREATITIS WITHOUT NECROSIS OR INFECTION, UNSP Status: Acute Comment: post ERCP-pancreatitis. Pain control per primary service - Plan * . Zofran PRN for nausea. Review of Systems - Review of Systems Respiratory: negative: Cough, Shortness of Breath, SOB with Excertion, Pleuritic Pain, Wheezing Cardiovascular: negative: chest pain, palpitations, orthopnea, paroxysmal nocturnal dyspnea, edema, light headedness Gastrointestinal: Nausea - Medications/Allergies Allergies/Adverse Reactions: Allergies Allergy/AdvReac Type Severity Reaction Status Date / Time No Known Drug Allergies Allergy Verified 05/20/18 03:51 Medications: Current Medications Acetaminophen (Tylenol) 650 mg PO Q4H PRN PRN Reason: Fever Last Admin: 05/28/18 22:56 Dose: 650 mg Al Hydroxide/Mg Hydroxide (Maalox) 15 ml PO Q6H PRN PRN Reason: Dyspepsia Last Admin: 05/24/18 00:30 Dose: 15 ml Albuterol/Ipratropium (Duoneb) 3 ml NEB Q4H PRN PRN Reason: Wheezing Bisacodyl (Dulcolax) 10 mg [place] DAILYPRN PRN PRN Reason: Constipation Last Admin: 05/21/18 20:19 Dose: 10 mg Calcium Carbonate (Tums) 1,000 mg PO Q4H PRN PRN Reason: Dyspepsia Dextrose/Water (Dextrose 50%) 25 gm SLOW IVP PRN PRN PRN Reason: Hypoglycemia Diphenhydramine HCl (Benadryl) 25 mg IM/IV Q3H PRN PRN Reason: Itching Diphenhydramine HCl (Benadryl) 25 mg PO Q3H PRN PRN Reason: Itching Enoxaparin Sodium (Lovenox) 40 mg SC 0900 [facility] Last Admin: 06/01/18 09:42 Dose: 40 mg Glucagon (Glucagon) 1 mg IM PRN PRN PRN Reason: Hypoglycemia Hydralazine HCl (Apresoline) 10 mg SLOW IVP Q4H PRN PRN Reason: SBP > 170 or DBP > 100 Last Admin: 05/25/18 11:49 Dose: 10 mg Hydromorphone HCl (Dilaudid Cadd) 0 mg IV INF PRN PRN Reason: Pain Last Admin: 05/31/18 15:42 Dose: 10 mg Dextrose/Water (D5w) 1,000 mls @ 0 mls/hr IV .Q0M PRN PRN Reason: Hypoglycemia Potassium Chloride/Dextrose/Sod Cl (D5 1/2 Ns W/20 Meq Kcl) 1,000 mls @ 0 mls/ hr IV .Q0M NICOLE Last Admin: 05/31/18 12:00 Dose: 1,000 mls Multivitamins 10 ml/ Chromium/Copper/Manganese/Seleni/Zn 5 ml/ Amino Acids/ Electrolytes 2,015 mls @ 83.958 mls/hr IV 2200 NICOLE Last Admin: 05/31/18 22:15 Dose: 2,015 mls Lisinopril (Zestril) 5 mg PO DAILY [facility] Last Admin: 06/01/18 09:42 Dose: 5 mg Metoclopramide HCl (Reglan) 10 mg IVP Q6H PRN PRN Reason: Nausea/Vomiting Last Admin: 06/01/18 02:10 Dose: 10 mg Miscellaneous Medication (Movantik) 25 mg PO DAILY-[facility] Last Admin: 06/01/18 08:52 Dose: Not Given Naloxone HCl (Narcan) 0.2 mg IV Q5MIN PRN PRN Reason: RR <8 or pt obtun/unarousable Ondansetron HCl (Zofran) 4 mg IVP Q6H PRN PRN Reason: Nausea/Vomiting Pantoprazole Sodium (Protonix) 40 mg IVP DAILY [facility] Last Admin: 06/01/18 09:41 Dose: 40 mg Polyethylene Glycol (Miralax) 17 gm PO DAILY [facility] Last Admin: 06/01/18 09:42 Dose: Not Given Potassium Chloride (K-Dur) 20 meq PO QA-[facility] Last Admin: 06/01/18 09:43 Dose: 20 meq Sodium Chloride (Flush - Normal Saline) 10 ml IVF Q12HR [facility] Last Admin: 06/01/18 09:42 Dose: 10 ml Sodium Chloride (Flush - Normal Saline) 10 ml IVF PRN PRN PRN Reason: Saline Flush Zolpidem Tartrate (Ambien) 5 mg PO HSPRN PRN PRN Reason: Insomnia
--- NOTE | 2018-06-01 13:51 | PRG ---
DATE OF SERVICE: 06/01/2018 SUBJECTIVE: The patient is feeling well. He is having no nausea or vomiting. He denies any pain. He is hungry and wants to eat. OBJECTIVE: VITAL SIGNS: Temperature 98.0, pulse 79, respiratory rate 20, blood pressure 136/83. HEENT: Unchanged. CHEST: Clear. CARDIOVASCULAR: Regular rate and rhythm. ABDOMEN: Soft, slightly tender, but no rebound or guarding. LABORATORY DATA: Sodium 134, BUN 8, glucose 124, AST 39, albumin 2.8, lipase of 548. ASSESSMENT: 1. Pancreatitis. 2. Nausea, vomiting - Dr. Mcdonald felt this was possibly secondary to the patient's pain medication. RECOMMENDATIONS: 1. We would begin at least full liquids or clear liquids and advance as tolerated. 2. Continue TPN. Job ID: [id number]
[2018-06-01] MEDS: D5 1/2 NS w/20 mEq KCL 1,000 ML IV SCH (16:15)
[2018-06-01] MEDS: Multivitamins, Adult 10 ML, Multitrace-5 5 ML in D15W-AA 5% with Lytes 2,000 ML IV SCH (22:01)
[2018-06-02 08:26] LABS: #Eosinphils 0.1 thou/uL (0.0-0.7); #Lymphocytes 1.6 thou/uL (1.20-3.40); #Monocytes 1.7 thou/uL (0.11-0.59); #Neutrophils 14.1 thou/uL (1.40-6.50); %Basophils 0.1 % (0.0-1.0); %Eosinophils 0.8 % (0.0-10.0); %Lymphocytes 8.9 % (21.0-51.0); %Monocytes 9.9 % (0.0-10.0); %Neutrophils 80.3 % (42.0-75.0); Hemoglobin 10.9 g/dL (14.0-18.0); Mean Corpuscular HGB CONC 32.9 g/dL (32.0-36.0); Mean Corpuscular Hemoglobin 30.9 pg (27.0-31.0); Mean Corpuscular Volume 94.2 fL (78.0-98.0); Mean Platelet Volume 6.3 fL (7.4-10.4); Platelet Count 640 thou/uL (130-400); RBC Distribution Width 12.5 % (11.5-14.5); Red Blood Cell (RBC) Count 3.52 mill/uL (4.70-6.10); White Blood Cell (WBC) Count 17.6 thou/uL (4.8-10.8)
[2018-06-02] MEDS: Lisinopril 5 MG TAB PO SCH (08:53)
[2018-06-02] MEDS: Polyethylene Glycol 3350 17 GM Packet PO SCH (08:53)
[2018-06-02] MEDS: Pantoprazole 40 MG VIAL IVP SCH (08:53)
[2018-06-02] MEDS: Potassium Chloride 20 MEQ TAB PO SCH (08:54)
[2018-06-02] MEDS: Enoxaparin Sodium 40 MG/0.4 ML SYRINGE SC SCH (09:02)
[2018-06-02 09:13] LABS: ALT (SGPT) 45 U/L (8-55); AST (SGOT) 42 U/L (5-34); Alkaline Phosphatase 80 U/L (40-150); Anion Gap 11 mmol/L (10-20); BUN (Urea Nitrogen) 12 mg/dL (8.9-20.6); Bilirubin, Total 0.9 mg/dL (0.2-1.2); Calc. Creatinine Clearance 148 mL/min (70-130); Calcium 8.5 mg/dL (7.8-10.44); Carbon Dioxide 22 mmol/L (22-29); Chloride 103 mmol/L (98-107); Estimated GFR-MDRD Greater than 90; Globulin 4.3 g/dL (2.4-3.5); Glucose 98 mg/dL (70-105); Potassium 4.1 mmol/L (3.5-5.1); Protein, Total 7.3 g/dL (6.0-8.3); Sodium 132 mmol/L (136-145)
--- NOTE | 2018-06-02 12:45 | PDOC.PN ---
- Subjective Encounter Start Date: 06/02/18 Encounter Start Time: 07:40 Pt seen for followup re: hypertension. No chest pain, shortness of breath, fevers or chills. - Objective MAR Reviewed: Yes Vital Signs & Weight: Vital Signs (12 hours) Temp Pulse Resp BP BP Pulse Ox 06/02/18 11:08 98.7 F 73 18 116/74 93 L 06/02/18 08:53 75 134/82 06/02/18 08:00 96 06/02/18 07:10 98.3 F 75 18 134/82 96 06/02/18 03:37 98.3 F 76 16 117/79 95 Weight Admit Weight 175 lb 0.047 oz Weight 161 lb 9.6 oz I&O: 06/01/18 06/02/18 06/03/18 06:59 06:59 06:59 Intake Total 1875 3880 Output Total 2550 8567 Balance -844 -459 Result Diagrams: 06/02/18 06:45 06/02/18 06:45 Additional Labs: Accuchecks 06/02/18 06/02/18 06/01/18 11:09 05:34 22:45 POC Glucose 124 H 103 115 H Labs reviewed by me Phys Exam - Physical Examination Constitutional: NAD HEENT: moist MMs Neck: supple Respiratory: clear to auscultation bilateral Cardiovascular: RRR Gastrointestinal: soft Neurological: moves all 4 limbs Psychiatric: normal affect Dx/Plan (1) Hypertension Code(s): I10 - ESSENTIAL (PRIMARY) HYPERTENSION Status: Chronic Comment: controlled, continue IV hydralazine (2) Cholecystitis Code(s): K81.9 - CHOLECYSTITIS, UNSPECIFIED Status: Acute Comment: s/p cholecystectomy (3) Acute pancreatitis Code(s): K85.90 - ACUTE PANCREATITIS WITHOUT NECROSIS OR INFECTION, UNSP Status: Acute Comment: post ERCP-pancreatitis. Clinically improving. Is on TPN. - Plan * . Review of Systems - Review of Systems Cardiovascular: negative: chest pain, palpitations, orthopnea, paroxysmal nocturnal dyspnea, edema Gastrointestinal: negative: Nausea, Vomiting, Abdominal Pain, Diarrhea, Constipation, Melena, Hematochezia - Medications/Allergies Allergies/Adverse Reactions: Allergies Allergy/AdvReac Type Severity Reaction Status Date / Time No Known Drug Allergies Allergy Verified 05/20/18 03:51 Medications: Current Medications Acetaminophen (Tylenol) 650 mg PO Q4H PRN PRN Reason: Fever Last Admin: 05/28/18 22:56 Dose: 650 mg Al Hydroxide/Mg Hydroxide (Maalox) 15 ml PO Q6H PRN PRN Reason: Dyspepsia Last Admin: 05/24/18 00:30 Dose: 15 ml Albuterol/Ipratropium (Duoneb) 3 ml NEB Q4H PRN PRN Reason: Wheezing Bisacodyl (Dulcolax) 10 mg [place] DAILYPRN PRN PRN Reason: Constipation Last Admin: 05/21/18 20:19 Dose: 10 mg Calcium Carbonate (Tums) 1,000 mg PO Q4H PRN PRN Reason: Dyspepsia Dextrose/Water (Dextrose 50%) 25 gm SLOW IVP PRN PRN PRN Reason: Hypoglycemia Diphenhydramine HCl (Benadryl) 25 mg IM/IV Q3H PRN PRN Reason: Itching Diphenhydramine HCl (Benadryl) 25 mg PO Q3H PRN PRN Reason: Itching Enoxaparin Sodium (Lovenox) 40 mg SC 0900 [facility] Last Admin: 06/02/18 09:02 Dose: 40 mg Glucagon (Glucagon) 1 mg IM PRN PRN PRN Reason: Hypoglycemia Hydralazine HCl (Apresoline) 10 mg SLOW IVP Q4H PRN PRN Reason: SBP > 170 or DBP > 100 Last Admin: 05/25/18 11:49 Dose: 10 mg Hydromorphone HCl (Dilaudid Cadd) 0 mg IV INF PRN PRN Reason: Pain Last Admin: 05/31/18 15:42 Dose: 10 mg Dextrose/Water (D5w) 1,000 mls @ 0 mls/hr IV .Q0M PRN PRN Reason: Hypoglycemia Potassium Chloride/Dextrose/Sod Cl (D5 1/2 Ns W/20 Meq Kcl) 1,000 mls @ 0 mls/ hr IV .Q0M NICOLE Last Admin: 06/01/18 16:15 Dose: 1,000 mls Multivitamins 10 ml/ Chromium/Copper/Manganese/Seleni/Zn 5 ml/ Amino Acids/ Electrolytes 2,015 mls @ 83.958 mls/hr IV 2200 NICOLE Last Admin: 06/01/18 22:01 Dose: 2,015 mls Lisinopril (Zestril) 5 mg PO DAILY [facility] Last Admin: 06/02/18 08:53 Dose: 5 mg Metoclopramide HCl (Reglan) 10 mg IVP Q6H PRN PRN Reason: Nausea/Vomiting Last Admin: 06/01/18 19:37 Dose: 10 mg Miscellaneous Medication (Movantik) 25 mg PO DAILY-[facility] Last Admin: 06/02/18 06:55 Dose: 25 mg Naloxone HCl (Narcan) 0.2 mg IV Q5MIN PRN PRN Reason: RR <8 or pt obtun/unarousable Ondansetron HCl (Zofran) 4 mg IVP Q6H PRN PRN Reason: Nausea/Vomiting Pantoprazole Sodium (Protonix) 40 mg IVP DAILY [facility] Last Admin: 06/02/18 08:53 Dose: 40 mg Polyethylene Glycol (Miralax) 17 gm PO DAILY [facility] Last Admin: 06/02/18 08:53 Dose: Not Given Potassium Chloride (K-Dur) 20 meq PO QAM-[facility] Last Admin: 06/02/18 08:54 Dose: 20 meq Sodium Chloride (Flush - Normal Saline) 10 ml IVF Q12HR [facility] Last Admin: 06/02/18 08:54 Dose: 10 ml Sodium Chloride (Flush - Normal Saline) 10 ml IVF PRN PRN PRN Reason: Saline Flush Last Admin: 06/01/18 22:02 Dose: 10 ml Zolpidem Tartrate (Ambien) 5 mg PO HSPRN PRN PRN Reason: Insomnia
[2018-06-02] MEDS: D5 1/2 NS w/20 mEq KCL 1,000 ML IV SCH (13:26)
[2018-06-02] MEDS: Multivitamins, Adult 10 ML, Multitrace-5 5 ML in D15W-AA 5% with Lytes 2,000 ML IV SCH (22:17)
[2018-06-03] MEDS: HYDROmorphone 10 mg/100 ml CADD IV PRN (02:09)
[2018-06-03 07:43] LABS: #Eosinphils 0.2 thou/uL (0.0-0.7); #Lymphocytes 1.6 thou/uL (1.20-3.40); #Monocytes 1.9 thou/uL (0.11-0.59); #Neutrophils 12.6 thou/uL (1.40-6.50); %Basophils 0.1 % (0.0-1.0); %Eosinophils 1.1 % (0.0-10.0); %Lymphocytes 9.7 % (21.0-51.0); %Monocytes 11.6 % (0.0-10.0); %Neutrophils 77.6 % (42.0-75.0); Hemoglobin 11.2 g/dL (14.0-18.0); Mean Corpuscular HGB CONC 33.5 g/dL (32.0-36.0); Mean Corpuscular Hemoglobin 31.2 pg (27.0-31.0); Mean Corpuscular Volume 93.1 fL (78.0-98.0); Mean Platelet Volume 5.7 fL (7.4-10.4); Platelet Count 761 thou/uL (130-400); RBC Distribution Width 12.4 % (11.5-14.5); Red Blood Cell (RBC) Count 3.59 mill/uL (4.70-6.10); White Blood Cell (WBC) Count 16.2 thou/uL (4.8-10.8)
[2018-06-03] MEDS: Lisinopril 5 MG TAB PO SCH (07:48)
[2018-06-03] MEDS: Potassium Chloride 20 MEQ TAB PO SCH (07:48)
[2018-06-03] MEDS: Pantoprazole 40 MG VIAL IVP SCH (07:48)
--- NOTE | 2018-06-03 07:48 | PRG ---
DATE OF SERVICE: 05/31/2018 SUBJECTIVE: Mr. Zimmerman's PICC line placed. Nurse is telling me that he is going to be started on TPN. He did have some abdominal pain yesterday but nurses tell me he is feeling a little bit better today. 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 OBJECTIVE: VITAL SIGNS: Temperature 98, pulse 76, and blood pressure 124/81. LUNGS: Clear. HEART: Regular rate and rhythm. ABDOMEN: Soft and nontender. There is no rebound. There is no guarding. EXTREMITIES: No clubbing, cyanosis, or edema. LABORATORY DATA: White count is 18.9 down from 21,000 on and platelet count is 522. Sodium 136, potassium 3.8, BUN and creatinine are 11 and 0.87. Lipase 369. Microbiology, none. ASSESSMENT: Post endoscopic retrograde cholangiopancreatography pancreatitis. The patient has had mildly increased lipase. He also has an increasing platelet count which could be a marker of inflammation since his CHURN DRILLER was stopped. RECOMMENDATIONS: 1. Again, I stopped his antibiotics. There is no role for this at this time with no sign of infection just puts him at risk for opportunity for communal infections. 2. I have put him back on a full-liquid diet. Add some Reglan for his nausea and try to wean off his narcotic pain medicines. 3. Get his Langley catheter out as it seems to be that most of his pain is suprapubic. 4. We will follow with you over the weekend. ADDENDUM: His scrotal edema has markedly decreased. I think we should take this opportunity to try to get his Langley catheter out. It may be worth trying to use nonsterile antiinflammatories for pain control instead of narcotics. This is a benign exam. He is not tachycardiac. He has had severe pancreatitis, but it seems to be little bit improved every day. It seems that his exacerbation of pain had been related to weaning his narcotics off. If his pain continues we will consider a repeat scan of the abdomen. His last scan was on 05/25/2018 Job ID: [id number]
--- NOTE | 2018-06-03 07:48 | PRG ---
DATE OF SERVICE: 06/02/2018 SUBJECTIVE: The patient denies any pain. He has not been taking any liquids because he is afraid that it would cause nausea and vomiting, although he has not had any nausea or vomiting. He has had no bowel movements. OBJECTIVE: VITAL SIGNS: Temperature 98.3, pulse 76, respiratory rate is 16, and blood pressure 117/79. CHEST: Clear. CARDIOVASCULAR: Regular rate and rhythm. ABDOMEN: Soft, diffusely tender, slight distention. Bowel sounds present. LABORATORY DATA: Laboratory shows a lipase of 507. ASSESSMENT: Severe pancreatitis - overall, the patient is stable. He is not taking much in orally because of the fear of it causing vomiting. RECOMMENDATIONS: 1. Continue present management. 2. Continue TPN. Job ID: [id number]
[2018-06-03] MEDS: Polyethylene Glycol 3350 17 GM Packet PO SCH (07:49)
[2018-06-03 07:57] LABS: Phosphorus 2.8 mg/dL (2.3-4.7)
[2018-06-03 08:01] LABS: ALT (SGPT) 59 U/L (8-55); AST (SGOT) 45 U/L (5-34); Alkaline Phosphatase 87 U/L (40-150); Anion Gap 10 mmol/L (10-20); BUN (Urea Nitrogen) 13 mg/dL (8.9-20.6); Bilirubin, Total 0.8 mg/dL (0.2-1.2); Calc. Creatinine Clearance 147 mL/min (70-130); Calcium 8.4 mg/dL (7.8-10.44); Carbon Dioxide 21 mmol/L (22-29); Chloride 102 mmol/L (98-107); Estimated GFR-MDRD Greater than 90; Globulin 4.4 g/dL (2.4-3.5); Glucose 112 mg/dL (70-105); Magnesium 2.1 mg/dL (1.6-2.6); Potassium 4.5 mmol/L (3.5-5.1); Protein, Total 7.4 g/dL (6.0-8.3); Sodium 128 mmol/L (136-145)
[2018-06-03] MEDS: Enoxaparin Sodium 40 MG/0.4 ML SYRINGE SC SCH (09:19)
--- NOTE | 2018-06-03 12:27 | PDOC.PN ---
- Subjective Encounter Start Date: 06/03/18 Encounter Start Time: 07:40 Pt seen for followup re: HTN. Denies chest pain, shortness of breath, fevers or chills. - Objective MAR Reviewed: Yes Vital Signs & Weight: Vital Signs (12 hours) Temp Pulse Resp BP Pulse Ox 06/03/18 11:11 98.7 F 71 18 109/74 98 06/03/18 07:48 73 06/03/18 07:09 98.2 F 71 16 121/76 97 06/03/18 04:34 98.5 F 73 16 121/76 97 Weight Admit Weight 175 lb 0.047 oz Weight 163 lb 6.4 oz I&O: 06/02/18 06/03/18 06/04/18 06:59 06:59 06:59 Intake Total 3880 1480 Output Total 4875 850 Balance -995 630 Result Diagrams: 06/04/18 06:50 06/04/18 06:50 Additional Labs: Accuchecks 06/03/18 06/03/18 06/03/18 11:10 06:29 00:23 POC Glucose 114 H 138 H 133 H 06/02/18 16:05 POC Glucose 114 H Labs reviewed by me Phys Exam - Physical Examination Constitutional: NAD HEENT: moist MMs Neck: supple Respiratory: clear to auscultation bilateral Cardiovascular: RRR Gastrointestinal: soft Neurological: moves all 4 limbs Psychiatric: normal affect Dx/Plan (1) Hypertension Code(s): I10 - ESSENTIAL (PRIMARY) HYPERTENSION Status: Chronic Comment: controlled (2) Cholecystitis Code(s): K81.9 - CHOLECYSTITIS, UNSPECIFIED Status: Acute Comment: s/p cholecystectomy, pt currently on TPN (3) Acute pancreatitis Code(s): K85.90 - ACUTE PANCREATITIS WITHOUT NECROSIS OR INFECTION, UNSP Status: Acute Comment: Clinically improving. Is on TPN. - Plan * . Review of Systems - Review of Systems Constitutional: negative: fever, chills, sweats, weakness, malaise Cardiovascular: negative: chest pain, palpitations, orthopnea, paroxysmal nocturnal dyspnea, edema, light headedness - Medications/Allergies Allergies/Adverse Reactions: Allergies Allergy/AdvReac Type Severity Reaction Status Date / Time No Known Drug Allergies Allergy Verified 05/20/18 03:51 Medications: Current Medications Acetaminophen (Tylenol) 650 mg PO Q4H PRN PRN Reason: Fever Last Admin: 05/28/18 22:56 Dose: 650 mg Al Hydroxide/Mg Hydroxide (Maalox) 15 ml PO Q6H PRN PRN Reason: Dyspepsia Last Admin: 05/24/18 00:30 Dose: 15 ml Albuterol/Ipratropium (Duoneb) 3 ml NEB Q4H PRN PRN Reason: Wheezing Bisacodyl (Dulcolax) 10 mg [place] DAILYPRN PRN PRN Reason: Constipation Last Admin: 05/21/18 20:19 Dose: 10 mg Calcium Carbonate (Tums) 1,000 mg PO Q4H PRN PRN Reason: Dyspepsia Dextrose/Water (Dextrose 50%) 25 gm SLOW IVP PRN PRN PRN Reason: Hypoglycemia Diphenhydramine HCl (Benadryl) 25 mg IM/IV Q3H PRN PRN Reason: Itching Last Admin: 06/02/18 22:24 Dose: 25 mg Diphenhydramine HCl (Benadryl) 25 mg PO Q3H PRN PRN Reason: Itching Enoxaparin Sodium (Lovenox) 40 mg SC 0900 [facility] Last Admin: 06/03/18 09:19 Dose: 40 mg Glucagon (Glucagon) 1 mg IM PRN PRN PRN Reason: Hypoglycemia Hydralazine HCl (Apresoline) 10 mg SLOW IVP Q4H PRN PRN Reason: SBP > 170 or DBP > 100 Last Admin: 05/25/18 11:49 Dose: 10 mg Hydromorphone HCl (Dilaudid Cadd) 0 mg IV INF PRN PRN Reason: Pain Last Admin: 06/03/18 02:09 Dose: 10 mg Dextrose/Water (D5w) 1,000 mls @ 0 mls/hr IV .Q0M PRN PRN Reason: Hypoglycemia Potassium Chloride/Dextrose/Sod Cl (D5 1/2 Ns W/20 Meq Kcl) 1,000 mls @ 0 mls/ hr IV .Q0M NICOLE Last Admin: 06/02/18 13:26 Dose: 1,000 mls Multivitamins 10 ml/ Chromium/Copper/Manganese/Seleni/Zn 5 ml/ Amino Acids/ Electrolytes 2,015 mls @ 83.958 mls/hr IV 2200 NICOLE Last Admin: 06/02/18 22:17 Dose: 2,015 mls Lisinopril (Zestril) 5 mg PO DAILY [facility] Last Admin: 06/03/18 07:48 Dose: 5 mg Metoclopramide HCl (Reglan) 10 mg IVP Q6H PRN PRN Reason: Nausea/Vomiting Last Admin: 06/01/18 19:37 Dose: 10 mg Miscellaneous Medication (Movantik) 25 mg PO DAILY-[facility] Last Admin: 06/03/18 06:42 Dose: 25 mg Naloxone HCl (Narcan) 0.2 mg IV Q5MIN PRN PRN Reason: RR <8 or pt obtun/unarousable Ondansetron HCl (Zofran) 4 mg IVP Q6H PRN PRN Reason: Nausea/Vomiting Pantoprazole Sodium (Protonix) 40 mg IVP DAILY [facility] Last Admin: 06/03/18 07:48 Dose: 40 mg Polyethylene Glycol (Miralax) 17 gm PO DAILY [facility] Last Admin: 06/03/18 07:49 Dose: Not Given Potassium Chloride (K-Dur) 20 meq PO QAM-WM [facility] Last Admin: 06/03/18 07:48 Dose: 20 meq Sodium Chloride (Flush - Normal Saline) 10 ml IVF Q12HR [facility] Last Admin: 06/03/18 07:50 Dose: Not Given Sodium Chloride (Flush - Normal Saline) 10 ml IVF PRN PRN PRN Reason: Saline Flush Last Admin: 06/01/18 22:02 Dose: 10 ml Zolpidem Tartrate (Ambien) 5 mg PO HSPRN PRN PRN Reason: Insomnia
[2018-06-03 12:38] VITALS: BMI 24.8
[2018-06-03] MEDS ORDERED: HYDROcodone/Acetaminophen 10/325 mg Tablet PO PRN (13:06)
[2018-06-03] MEDS ORDERED: DC PCA Order Set 1 EACH FS ONE (13:06)
--- NOTE | 2018-06-03 14:25 | PRG ---
DATE OF SERVICE: 06/03/2018 SUBJECTIVE: The patient is feeling much better. He has minimal pain, it is 1 utmost. His nausea is completely resolved. He is tolerating a full liquid diet. He is hungry for real food. He is urinating without a catheter. His bowels are working but are somewhat loose. OBJECTIVE: VITAL SIGNS: Temperature is 98.7, pulse 71, and blood pressure 109/74. GENERAL: He looks good. ABDOMEN: Nondistended. The incisions are healing well without evidence of infection. GENITOURINARY: His scrotal edema has just about resolved. ASSESSMENT: Doing much better. PLAN: Regular diet. 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 Wean TPN. Job ID: [id number]
[2018-06-03] MEDS: HYDROcodone/Acetaminophen 10/325 mg Tablet PO PRN (20:12)
[2018-06-03] MEDS: Metoclopramide HCl 10 MG/2 ML VIAL IVP PRN (20:12)
[2018-06-03] MEDS ORDERED: diphenhydrAMINE 25 MG CAP PO SCH (22:30)
[2018-06-04 07:29] LABS: #Eosinphils 0.2 thou/uL (0.0-0.7); #Lymphocytes 1.8 thou/uL (1.20-3.40); #Monocytes 1.6 thou/uL (0.11-0.59); #Neutrophils 9.3 thou/uL (1.40-6.50); %Basophils 0.3 % (0.0-1.0); %Eosinophils 1.9 % (0.0-10.0); %Lymphocytes 13.8 % (21.0-51.0); %Monocytes 12.5 % (0.0-10.0); %Neutrophils 71.5 % (42.0-75.0); Hemoglobin 11.6 g/dL (14.0-18.0); Mean Corpuscular HGB CONC 32.9 g/dL (32.0-36.0); Mean Corpuscular Hemoglobin 30.8 pg (27.0-31.0); Mean Corpuscular Volume 93.7 fL (78.0-98.0); Mean Platelet Volume 5.9 fL (7.4-10.4); Platelet Count 750 thou/uL (130-400); RBC Distribution Width 12.6 % (11.5-14.5); Red Blood Cell (RBC) Count 3.78 mill/uL (4.70-6.10); White Blood Cell (WBC) Count 13.1 thou/uL (4.8-10.8)
[2018-06-04 07:34] LABS: ALT (SGPT) 62 U/L (8-55); AST (SGOT) 42 U/L (5-34); Albumin 3.1 g/dL (3.5-5.0); Alkaline Phosphatase 99 U/L (40-150); Anion Gap 11 mmol/L (10-20); BUN (Urea Nitrogen) 15 mg/dL (8.9-20.6); Bilirubin, Total 0.7 mg/dL (0.2-1.2); Calc. Creatinine Clearance 128 mL/min (70-130); Calcium 9.1 mg/dL (7.8-10.44); Carbon Dioxide 25 mmol/L (22-29); Chloride 100 mmol/L (98-107); Estimated GFR-MDRD Greater than 90; Globulin 4.8 g/dL (2.4-3.5); Glucose 91 mg/dL (70-105); Lipase 376 U/L (8-78); Potassium 4.8 mmol/L (3.5-5.1); Protein, Total 7.9 g/dL (6.0-8.3); Sodium 131 mmol/L (136-145)
[2018-06-04] MEDS: Lisinopril 5 MG TAB PO SCH (08:45)
[2018-06-04] MEDS: Polyethylene Glycol 3350 17 GM Packet PO SCH (08:46)
[2018-06-04] MEDS: Potassium Chloride 20 MEQ TAB PO SCH (08:46)
[2018-06-04] MEDS: Pantoprazole 40 MG VIAL IVP SCH (08:46)
[2018-06-04] MEDS: Enoxaparin Sodium 40 MG/0.4 ML SYRINGE SC SCH (08:53)
[2018-06-04 11:48] VITALS: BP 102/66; TEMP 97.9
[2018-06-04] MEDS: HYDROcodone/Acetaminophen 10/325 mg Tablet PO PRN (13:06)
--- NOTE | 2018-06-04 19:00 | PRG ---
DATE OF SERVICE: 06/03/2018 SUBJECTIVE: Mr. Zimmerman states he is feeling better. Dr. Mcdonald has weaned him off narcotic IV Dilaudid over the weekend and placed him on oral narcotic pain medication. He states he started to eat. He is voiding well without a Langley catheter, which was removed 14 hours ago. His lower abdominal pain has resolved. He still has some mild epigastric pain. OBJECTIVE: VITAL SIGNS: T-max 98.6, pulse 65, respirations were 18, blood pressure 102/62. LUNGS: Clear. HEART: Regular rate and rhythm. No rubs, gallops, or murmurs. ABDOMEN: Soft. There is mild tenderness in the epigastric region. No rebound or guarding. There is no fluctuance. There is no fluid wave, shifting dullness. EXTREMITIES: No clubbing, cyanosis, or edema. GENITOURINARY: Scrotal edema has resolved. LABORATORY DATA: White count 16.2, hemoglobin 11.2, platelet count 761, neutrophils 71%. Sodium 128, potassium 4.5, BUN and creatinine of 13 and 0.72, glucose 112. AST and ALT are 45 and 59 with alk phos at 87 and bilirubin of 0.8. The patient's last lipase was on 06/02 and was 507. ASSESSMENT: 1. Post endoscopic retrograde cholangiopancreatography pancreatitis, resolving. 2. Massive edema plus fluid resuscitation, resolved. 3. Leukocytosis, resolving. 4. Pain, resolving. 5. Elevated liver function tests, resolved. 6. Cholelithiasis, chronic. 7. Cholecystitis. RECOMMENDATIONS: I agree with continue to wean narcotic pain medicine and transition to p.o. medicines. I would follow lipase. If patient is tolerating diet and can do well with oral pain medicines, hopefully go home in the next couple of days. Job ID: [id number]
--- NOTE | 2018-06-05 08:57 | DIS ---
DATE OF ADMISSION: 05/20/2018 DATE OF DISCHARGE: 06/04/2018 DISCHARGE DIAGNOSES: Acute cholecystitis, choledocholithiasis, post endoscopic retrograde cholangiopancreatography pancreatitis. PROCEDURES DURING ADMISSION: Laparoscopic cholecystectomy, ERCP, CT scan of the abdomen and pelvis x3, and PICC line placement. HOSPITAL COURSE: The patient was admitted, given IV antibiotics, taken to the operating room, underwent a laparoscopic cholecystectomy. Postprocedure, LFTs jumped up significantly. GI was consulted. An ERCP was performed. A small stone was extracted and sphincterotomy performed. Postprocedure, he developed very severe pancreatitis. His lipase climbed over 3000. Tremendous pain, nausea, and vomiting. He was placed at bowel rest, given IV fluids, carefully followed. He started to get better. He was tried on oral pain medicines, off his FUNDRAISING DIRECTOR, but he developed nausea and vomiting. PICC line was placed. He was placed on TPN. He got better. His FUNDRAISING DIRECTOR was weaned. He is now tolerating a regular diet. Bowels are functioning well. He is voiding well. Pain is controlled. He is discharged home, afebrile, in good condition, on hydrocodone and Zofran. He will follow up with me in 2 weeks. Job ID: [id number]
== END 2018-06-04 13:19 | disposition home or self-care (01) | DRG 417 ==
LOC: ERS 00:50 → SURG B 03:30
PROVIDERS: ADMIT Surgery; ATTEND Surgery
PROC: 0FT44ZZ Resection of Gallbladder, Percutaneous Endoscopic Approach (ICD-10-PCS; principal; 2018-05-20)
PROC: 0F798ZZ Dilation of Common Bile Duct, Via Natural or Artificial Opening Endoscopic (ICD-10-PCS; 2018-05-21)
PROC: 02HV33Z Insertion of Infusion Device into Superior Vena Cava, Percutaneous Approach (ICD-10-PCS; 2018-05-31)
PROC: B5181ZA Fluoroscopy of Superior Vena Cava using Low Osmolar Contrast, Guidance (ICD-10-PCS; 2018-05-31)
PROC: 3E0436Z Introduction of Nutritional Substance into Central Vein, Percutaneous Approach (ICD-10-PCS; 2018-05-31)
DX: K81.0 Acute cholecystitis (principal); J18.9 Pneumonia, unspecified organism; K85.10 Biliary acute pancreatitis without necrosis or infection; I10 Essential (primary) hypertension; R79.89 Other specified abnormal findings of blood chemistry; N50.89 Other specified disorders of the male genital organs; D72.829 Elevated white blood cell count, unspecified; D64.9 Anemia, unspecified; E83.39 Other disorders of phosphorus metabolism; E87.6 Hypokalemia
CPT/HCPCS: 36415; 36416; 36569; 71046; 74177; 74330; 76705; 80048; 80053; 80076; 81001; 82150; 82553; 83690; 83735; 84100; 84484; 85025; 86140; 87040; 87086; 88304; 93005; 93010; 96361; 96374; 96375; C1751; C1769; C9113; J0131; J0360; J0694; J1100; J1200; J1610; J1644; J1650; J1885; J1940; J1956; J2001; J2250; J2270; J2405; J2543; J2550; J2704; J2765; J3010; J7050; Q9961; S0028

== ENCOUNTER 2018-06-13 14:26 | Observation (INO) | payer SELFPAY ==
[2018-06-13 16:03] LABS: #Eosinphils 0.1 thou/uL (0.0-0.7); #Lymphocytes 1.6 thou/uL (1.20-3.40); #Monocytes 0.7 thou/uL (0.11-0.59); #Neutrophils 5.5 thou/uL (1.40-6.50); %Basophils 0.2 % (0.0-1.0); %Lymphocytes 20.6 % (21.0-51.0); %Monocytes 8.7 % (0.0-10.0); %Neutrophils 69.5 % (42.0-75.0); Mean Corpuscular HGB CONC 32.4 g/dL (32.0-36.0); Mean Corpuscular Hemoglobin 30.2 pg (27.0-31.0); Mean Corpuscular Volume 93.2 fL (78.0-98.0); Mean Platelet Volume 5.5 fL (7.4-10.4); Platelet Count 504 thou/uL (130-400); RBC Distribution Width 12.2 % (11.5-14.5); Red Blood Cell (RBC) Count 3.63 mill/uL (4.70-6.10); White Blood Cell (WBC) Count 7.9 thou/uL (4.8-10.8)
[2018-06-13 16:08] LABS: INR-International Normal Ratio 1.1; PTT 32.1 SEC (22.9-36.1); Prothrombin Time 14.6 SEC (12.0-14.7)
[2018-06-13 16:23] LABS: ALT (SGPT) 22 U/L (8-55); AST (SGOT) 23 U/L (5-34); Albumin 3.3 g/dL (3.5-5.0); Alkaline Phosphatase 71 U/L (40-150); Anion Gap 11 mmol/L (10-20); BUN (Urea Nitrogen) 9 mg/dL (8.9-20.6); Bilirubin, Total 0.4 mg/dL (0.2-1.2); Calc. Creatinine Clearance 0 mL/min (70-130); Calcium 9.1 mg/dL (7.8-10.44); Carbon Dioxide 28 mmol/L (22-29); Chloride 100 mmol/L (98-107); Estimated GFR-MDRD Greater than 90; Glucose 95 mg/dL (70-105); Protein, Total 8.3 g/dL (6.0-8.3); Sodium 135 mmol/L (136-145)
--- NOTE | 2018-06-13 16:46 | CT ---
CT HEAD NONCONTRAST: History: Altered mental status. Weakness. Paresthesias. FINDINGS: There is no evidence of acute intracranial hemorrhage or infarct. Ventricles appear normal in size, s hape, and position. There is no mass effect or shift of midline structures. Visualized paranasal sinu ses remain well aerated. IMPRESSION: No acute intracranial abnormalities are demonstrated. POS: NORA
[2018-06-13 19:31] LABS: Troponin I Less than 0.010 ng/mL (< 0.028)
[2018-06-13] MEDS ORDERED: Acetaminophen 325 MG TAB PO PRN (20:53)
[2018-06-13] MEDS ORDERED: Ondansetron PF 4 MG/2 ML Vial IVP PRN (20:53)
[2018-06-13] MEDS ORDERED: Ondansetron ODT 4 MG TAB SL PRN (20:53)
[2018-06-13] MEDS ORDERED: hydrALAZINE 20 MG/ML VIAL SLOW IVP PRN (21:57)
[2018-06-13] MEDS ORDERED: Labetalol HCl 100 MG/20 ML VIAL SLOW IVP PRN (21:57)
[2018-06-13] MEDS ORDERED: Zolpidem Tartrate 5 MG TAB PO PRN (22:21)
[2018-06-13 22:46] LABS: Troponin I 0.018 ng/mL (< 0.028)
[2018-06-14 00:28] VITALS: BMI 24.1
[2018-06-14 05:43] LABS: #Eosinphils 0.1 thou/uL (0.0-0.7); #Lymphocytes 1.8 thou/uL (1.20-3.40); #Neutrophils 5.3 thou/uL (1.40-6.50); %Basophils 0.3 % (0.0-1.0); %Eosinophils 0.8 % (0.0-10.0); %Lymphocytes 22.4 % (21.0-51.0); %Monocytes 11.7 % (0.0-10.0); %Neutrophils 64.9 % (42.0-75.0); Hemoglobin 10.8 g/dL (14.0-18.0); Mean Corpuscular HGB CONC 32.6 g/dL (32.0-36.0); Mean Corpuscular Hemoglobin 30.4 pg (27.0-31.0); Mean Corpuscular Volume 93.3 fL (78.0-98.0); Mean Platelet Volume 5.7 fL (7.4-10.4); Platelet Count 447 thou/uL (130-400); RBC Distribution Width 12.1 % (11.5-14.5); Red Blood Cell (RBC) Count 3.55 mill/uL (4.70-6.10); White Blood Cell (WBC) Count 8.1 thou/uL (4.8-10.8)
[2018-06-14 05:58] LABS: Anion Gap 10 mmol/L (10-20); BUN (Urea Nitrogen) 7 mg/dL (8.9-20.6); Calc. Creatinine Clearance 109 mL/min (70-130); Calcium 9.2 mg/dL (7.8-10.44); Carbon Dioxide 28 mmol/L (22-29); Cardiac Risk 3.9 (Less than 4.5); Chloride 101 mmol/L (98-107); Cholesterol 78 mg/dl (< 200 Desired); Estimated GFR-MDRD 89; Glucose 94 mg/dL (70-105); HDL Cholesterol 20 mg/dL (>60 Neg Risk); LDL Cholesterol, Calculated 45 mg/dL; Potassium 4.3 mmol/L (3.5-5.1); Sodium 135 mmol/L (136-145); Triglycerides 63 mg/dL (Less than 150)
[2018-06-14] MEDS: Famotidine/PF 20 mg/2ml Vial SLOW IVP SCH ×2 (08:19→21:28)
[2018-06-14] MEDS: Famotidine 20 MG TAB PO SCH ×2 (08:20→17:57)
[2018-06-14] MEDS ORDERED: Aspirin 81 mg Enteric Coated Tablet PO SCH (09:00)
--- NOTE | 2018-06-14 10:49 | MRI ---
MRI BRAIN NONCONTRAST: HISTORY: 37-year-old male with TIA, altered mental status, weakness, paresthesia and left sided numbness (hype sthesia). FINDINGS: The ventricles are normal in size and configuration. There is no major intraaxial signal abnormality , restricted diffusion, midline shift or any other mass effect, recent intraaxial hemorrhage, or extr aaxial fluid collection. The cerebellar tonsils protrude inferior to the foramen magnum a distance of 12 mm. This results in crowding of the foramen magnum. IMPRESSION: Chiari I malformation. daron POS: STEPH
--- NOTE | 2018-06-14 14:04 | CON ---
DATE OF CONSULTATION: 06/14/2018 TYPE OF CONSULTATION: Neurology. REFERRING PHYSICIAN: Dr. Osbaldo Robertson. REASON FOR REFERRAL: Paresthesias of the right arm and right leg. CHIEF COMPLAINT: Paresthesias of the right arm and right leg. HISTORY OF PRESENT ILLNESS: This is a 37-year-old male, who states that for about a week or 10 days, he has had numbness of the right arm and right leg. It does not affect the face. There has not been any problem with his speech or swallowing and no problem with his vision. No double vision. No neck pain. He has not had any injury to his head or his neck. He states that the numbness in his arm and his leg is constant and does not come and go. It seemed to come on gradually 7 to 10 days ago. Earlier this month, he was in the hospital for a cholecystectomy, which was laparoscopic and after that he got pancreatitis which has gotten better. He states that his abdomen is feeling okay now. He states that he had gallstones prior to the gallbladder surgery. PAST MEDICAL HISTORY: Positive for hypertension. REVIEW OF SYSTEMS: GENERAL: No chills or fever. No weight change. EYES: No discharge. No double vision. ENT: No discharges. No sore throat. CARDIOVASCULAR: No chest pain. RESPIRATORY: No shortness of breath. No cough. GI: He had a recent pancreatitis and gallbladder surgery. He states that he is much better from that now. MUSCULOSKELETAL: No joint complaints. No swelling. SKIN: No rashes. NEUROLOGIC: He has had the paresthesias of the right arm and right leg. ENDOCRINE: No thyroid problems or hormonal problems that he knows of. PSYCHIATRIC: No depression. SOCIAL HISTORY: He does not smoke or drink. FAMILY HISTORY: Negative. PHYSICAL EXAMINATION: VITAL SIGNS: Show temperature of 99, pulse 85, respiratory rate 20, O2 saturation is 97, and blood pressure 111/66. HEENT: Negative. LUNGS: Clear. HEART: No murmurs or gallops. ABDOMEN: Not distended. SKIN: No rashes. No bruising. JOINTS: No swelling. EXTREMITIES: No clubbing, cyanosis, or edema. NEUROLOGICAL: He is awake, alert, and oriented x3. Cranial nerves 2 through 12 tested normally. Pupils 2 mm and reactive. Discs are sharp. Carotids no bruits. Motor 5/5 strength in the arms and legs with normal tone and bulk. No atrophy or fasciculations. Fine motor is normal. DTRs are 2+. Toes were downgoing. Gait is normal. Coordination, [id number], [id number] are normal. Gait is normal. Tandem walking is normal. Sensation is slightly diminished to light touch in the right arm and right leg. He is intact in the face. IMAGING STUDIES: MRI of the brain without contrast did not show any strokes or tumors. There was a Chiari I malformation with the cerebellar tonsils protruding inferior to the foramen magnum at a distance of 12 mm. This resulted in crowding of the foramen magnum according to the radiologist's report. LABORATORY DATA: Labs show white count of 8.1, hemoglobin 10.8, hematocrit 33.2, and platelets 447,000. Sodium 135, potassium 4.3, and chloride 101. BUN 10 and creatinine is . Total bilirubin is 0.4, AST 23, and ALT 22 on 06/13/2018. Triglycerides 63, cholesterol 78, LDL was 45, and HDL 20. IMPRESSION: Numbness of the right arm and right leg, possibly related to cervical spinal stenosis, consider maybe it is related to the Arnold-Chiari type 1. PLAN: We will plan to do an MRI of the brain with contrast and MRI of the cervical spine with and without contrast. There is no sign of any stroke or tumor in the brain or multiple sclerosis. This is all discussed with the patient and the patient was interviewed and examined with the assistance of a Malaysian Danish lookback coordinator. Job ID: [id number]
[2018-06-14] MEDS ORDERED: hydrALAZINE 20 MG/ML VIAL SLOW IVP PRN (15:27)
--- NOTE | 2018-06-14 18:07 | MRI ---
MRI CERVICAL SPINE WITH AND WITHOUT CONTRAST: 06/14/18 HISTORY: 37-year-old male, cervical radiculopathy, possible cervical myelopathy, with hypesthesia (numbness) i n right upper extremity and right lower extremity. TECHNIQUE: Multisequence MRI of the cervical spine performed in sagittal and axial planes, pre and post IV injec tion of 14 mL of Multihance gadolinium based contrast agent. FINDINGS: The cerebellar tonsils protrude inferior to the foramen magnum for a distance of approximately 12 mm. The cervical spinal cord is normal in size and signal. No evidence of syrinx. There is diffusely lisa ogeneously hypointense signal throughout the bone marrow on T1WI, nonspecific, but probably represent ing red marrow. There is no abnormal enhancement in the intramedullary, extramedullary-intradural, e xtradural, or perivertebral, spaces. C2-3: Normal. C3-4: Normal. C4-5: Minimal central small disc/osteophyte complex protrusion indents the ventral aspect of the thec al sac, without contacting the spinal cord. Mild central stenosis. No neural foraminal stenosis. Disc space maintained. Normal bilateral facet joints. C5-6: Central-left paracentral focal small disc herniation which contacts the ventral surface of the spinal cord, minimally indenting it. The AP dimension of the spinal canal and thecal sac at the point of contact is moderately stenotic. The overall cross-sectional area of the thecal sac is mildly sten otic. No neural foraminal stenosis. Disc space is maintained. Normal facet joints. C6-7: Mild disc space narrowing. Disc desiccation. Modic type I end plate marrow changes. Broad based , shallow disc-osteophytic bar complex encroaches upon the anterior aspect of the spinal canal, causi ng moderate central spinal canal stenosis. Small to moderate sized bilateral uncinate process osteoph ytes causing mild to moderate bilateral neural foraminal stenosis, left greater than right. C7-T1: Normal. IMPRESSION: 1. Chiari I malformation. 2. Mild cervical spondylosis, with mild degenerative disc disease at C5-6 and C6-7. 3. Small central disc herniation at C5-6, minimally indenting the spinal cord. 4. No syringohydromyelia. 1. POS: [facility]
--- NOTE | 2018-06-14 18:09 | MRI ---
MRI BRAIN WITH CONTRAST: 06/14/18 HISTORY: 37-year-old male with right upper extremity and right lower extremity hypesthesia (numbness). TECHNIQUE: 14 mL of Multihance gadolinium based contrast agent injected IV. Postcontrast T1 weighted images obtained in sagittal, axial, and coronal planes. The patient already had a standard noncontrast brain MRI earlier today. FINDINGS: The cerebellar tonsils protrude inferior to the foramen magnum with distance of approximately 12 mm, resulting in crowding of the foramen magnum. There is no abnormal intracranial enhancement. IMPRESSION: 1. Chiari I malformation. 2. No other abnormality. POS: [facility]
[2018-06-14] MEDS ORDERED: Atorvastatin Calcium 40 MG TAB PO SCH (21:00)
[2018-06-14] MEDS ORDERED: HYDROcodone/Acetaminophen 10/325 mg Tablet PO SCH (21:30)
[2018-06-15] MEDS: HYDROcodone/Acetaminophen 10/325 mg Tablet PO SCH ×2 (06:30→09:08)
[2018-06-15] MEDS: Famotidine/PF 20 mg/2ml Vial SLOW IVP SCH (09:01)
[2018-06-15] MEDS: Famotidine 20 MG TAB PO SCH (09:08)
[2018-06-15] MEDS ORDERED: Mag-Al 1200 mg/1200 mg/30 ML UDCUP PO PRN (10:09)
[2018-06-15 10:44] LABS: ALT (SGPT) 19 U/L (8-55); AST (SGOT) 19 U/L (5-34); Albumin 3.6 g/dL (3.5-5.0); Alkaline Phosphatase 78 U/L (40-150); Bilirubin, Direct 0.3 mg/dL (0.1-0.3); Bilirubin, Total 0.5 mg/dL (0.2-1.2)
[2018-06-15 11:55] VITALS: BP 120/70; TEMP 98.3
--- NOTE | 2018-06-15 12:14 | PRG ---
DATE OF SERVICE: 06/15/2018 FOLLOWUP NEUROLOGY NOTE PRESENT ILLNESS: Following up for right arm and right leg numbness. He states that it seems to be a little bit better. Note that he had an old injury to his right arm about 12 years ago and he had some nerve damage in that arm. However, this current numbness is different than that numbness. Also, he has numbness on his right lower extremity on the bottom of his foot and that is also different than before. He denies any neck pain. He denies any numbness or weakness of the face. OBJECTIVE: GENERAL: On exam, he is awake and alert. Motor 5/5 strength except for diminished fine motor on the right upper extremity, which is old. Sensation is slightly diminished to light touch in the right arm and the right leg compared to the left. VITAL SIGNS: Temperature 98.4, pulse 79, respiratory rate 16, and blood pressure 114/63. HEENT: Normal. NEUROLOGIC: Motor 5/5 strength except for slightly diminished fine motor on the right upper extremity. Sensation is slightly diminished to light touch in the right arm and right leg. Gait is normal. LABORATORY DATA: Test results showed that he had an MRI of the brain with and without contrast that showed the Arnold-Chiari malformation with 12-mm protrusion of the cerebellar tonsils. MRI of the cervical spine showed that there are disk protrusion at C6-C7 causing some moderate central spinal canal stenosis and disk protrusion at C5-C6, also the Chiari 1 malformation. There was no syringomyelia or spinal cord changes. No sign of MS, and no sign of tumor. IMPRESSION: Right arm and right leg numbness. I suspect due to his cervical spinal disk and spinal stenosis, possibly the Arnold-Chiari is an incidental finding and not the cause of his current symptoms. PLAN: I discussed with the patient. I spoke with him with the assistance of a Cymro-Faroese flying teacher. I discussed the test results with the patient. I recommend that he have neurosurgical consultation. This was discussed with the patient and with the patient's nurse. I was informed that the attending has requested a neurosurgical consultation. This was discussed with the patient. I am not sure if the patient needs neurosurgery or needs arm surgery for this or not, that will be determined by the neurosurgeon. Discussed with the patient. I do recommend that he avoid any injuries to his head or neck. I do not have anything further to offer from a neurological standpoint at this time, so I will sign off. Job ID: [id number]
--- NOTE | 2018-06-15 13:50 | EKG ---
Test Reason : Blood Pressure : / mmHG Vent. Rate : 082 BPM Atrial Rate : 082 BPM P-R Int : 158 ms QRS Dur : 080 ms QT Int : 354 ms P-R-T Axes : 040 -10 -01 degrees QTc Int : 413 ms Normal sinus rhythm RSR' or QR pattern in V1 suggests right ventricular conduction delay Minimal voltage criteria for LVH, may be normal variant Borderline ECG Confirmed by KONSTANTIN OCAMPO ([id number]), advertising editor RODOLFO MARTÍNEZ ([id number] on 06/15/2018 1:49:46 PM Referred By: Confirmed By:KONSTANTIN OCAMPO
--- NOTE | 2018-06-17 07:33 | HP ---
PRIMARY CARE PHYSICIAN: Dr. Biswas. CHIEF COMPLAINT: Numbness over the right arm and right leg of 1 week duration. HISTORY OF PRESENT ILLNESS: The patient is a 37-year-old male with hypertension with recent gallstone pancreatitis, status post laparoscopic cholecystectomy, presented to the hospital with above complaints. Over the last 1 week, the patient noticed numbness to his right hand and right foot. He denies any other focal deficit. No chest pain, palpitations, double vision, blurring of vision, facial asymmetry, weakness, or numbness of any of his extremities. He denies similar symptoms in the past. No family history of heart disease reported. He denies any drug abuse. No recent immobilization, travel other than the recent hospitalization. He was seen by Dr. Mcdonald, who referred him to the emergency room for evaluation. In the emergency room, his initial vital signs showed temperature 98.1, respirations 18, pulse rate of 85, blood pressure 123/72 with O2 saturation of 95% on room air. CT scan of the brain was negative for acute findings. He received aspirin in the emergency room. His NIH score in the emergency room was 1. His EKG showed sinus rhythm with right ventricular conduction delay and left axis deviation. PAST MEDICAL HISTORY: 1. Recent gallstone pancreatitis, status post ERCP and laparoscopic cholecystectomy. 2. Hypertension. PAST SURGICAL HISTORY: 1. Tumor removed behind the ear in 2011. 2. Right arm surgery. 3. Cholecystectomy. ALLERGIES: THE PATIENT DENIES ANY DRUG ALLERGIES. CURRENT HOME MEDICATION: 1. Lisinopril-HCTZ 10-12.5 daily. 2. Zofran as needed. 3. [place] as needed. SOCIAL HISTORY: The patient currently lives at home with his family. No current use of tobacco, alcohol, or drug use reported. FAMILY HISTORY: Negative for premature coronary artery disease. REVIEW OF SYSTEMS: All other review of systems were reviewed and were found negative. PHYSICAL EXAMINATION: VITAL SIGNS: Current vital signs showed temperature 98.3, pulse rate of 82, blood pressure 115/72, respiration of 16, O2 saturation of 99% on room air. GENERAL: A 37-year-old male in no apparent distress. Continues to have numbness in the right hand and right foot. HEENT: Head; atraumatic, normocephalic. Sclerae are anicteric. Moist mucous membranes. No oral lesion. NECK: Supple. No JVD appreciated. No carotid bruit. LUNGS: Clear to auscultation bilaterally. No wheezing, rales, or rhonchi. HEART: S1 and S2 present. Regular rate and rhythm. No rubs or gallops appreciated. No significant murmurs. ABDOMEN: Soft, nontender. Bowel sounds are present. EXTREMITIES: No edema or calf tenderness. NEUROLOGIC: Cranial nerves 2 through 12 were normal on examination. Power was 5/5 in all extremities. Sensation to touch was diminished in the right hand and right foot. Otherwise, exam was nonfocal. SKIN: Warm and dry. LYMPH NODE: No palpable lymph nodes in the neck. PERIPHERAL VASCULAR: Radial pulses palpable bilaterally. MUSCULOSKELETAL: No joint swelling, tenderness. LABORATORY DATA: WBC 7.9, hemoglobin 11, hematocrit 33.8, platelets 504. PT, INR, PTT in normal range. Troponin was negative. Sodium 135, potassium 4, chloride of 100, bicarb 28. DIAGNOSTIC DATA: CT scan of the brain, by my review, as discussed above. EKG, by my review, as discussed above. IMPRESSION: 1. A 37-year-old male with right hand and right foot numbness. His symptoms are concerning for CVA. Congenital anomalies are also possibility. 2. Hypertension. 3. Recent gallstone pancreatitis, status post ERCP and laparoscopic cholecystectomy. 4. Mild hyponatremia. 5. Chronic anemia. PLAN: The patient will be monitored in the stroke unit as 23-hour observation. We will get stroke workup. Neurology will be consulted. We will continue aspirin. We will check fasting lipid profile. We will hold antihypertensives for now due to blood pressure in low normal range. Plan of care was discussed with the patient in detail. He stated understanding. Job ID: [id number]
--- NOTE | 2018-06-17 08:39 | DIS ---
DATE OF ADMISSION: 06/13/2018 DATE OF DISCHARGE: 06/15/2018 DISCHARGE DISPOSITION: Home. FOLLOWUP: 1. Follow up with primary care physician, Dr. Biswas, in 1 week. 2. Follow up with Neurosurgery, Dr. Aladna, in 3 to 4 weeks. ALLERGIES: NO KNOWN DRUG ALLERGIES. DISCHARGE MEDICATIONS: Are same as admission medication. The patient was seen and examined on the day of discharge. Denies any new complaints. BRIEF HOSPITAL COURSE: The patient is a 37-year-old male with recent laparoscopic cholecystectomy, who presented to the emergency room with paresthesias of the right arm and right leg. His paresthesias were mainly over the fingers and the toes. Please refer to the history and physical for further details. The patient was admitted to the Stroke unit with a diagnosis of transient ischemic attack. He underwent MRI of the brain that showed Arnold Chiari malformation type 1. The patient was evaluated by Neurology, Dr. Bradley. She recommended MRI of the cervical spine as well as MRI of the brain with contrast. The cervical spine MRI showed mild cervical spondylosis with mild degenerative disk disease at C5-C6 and C6-C7. There was a small central disk herniation at C5-C6 minimally indenting the spinal cord. His MRI of the brain with contrast showed Chiari I malformation with protrusion of cerebellar tonsils approximately 12 mm. I discussed with Neurosurgery, Dr. Aldana, and his PA, Adam. No acute neurosurgical intervention is needed. He was advised to follow up with Neurosurgery as outpatient. SIGNIFICANT LABS: Fasting lipid profile showed cholesterol 78, LDL 45. Vitamin B12 489. LFTs in normal range. Hemoglobin 10.8. FINAL DIAGNOSES: 1. Paresthesias of the right hand and right foot secondary to Chiari I malformation. 2. Hypertension. 3. Mild hyponatremia. 4. Recent laparoscopic cholecystectomy. PLAN: 1. Plan of care was discussed with the patient in detail. He stated understanding. 2. The patient was advised to seek medical attention, if he develops any new focal neurologic deficit. Job ID: [id number]
== END 2018-06-15 12:49 | disposition home or self-care (01) ==
LOC: ERS 14:26 → 2SE 21:04
PROVIDERS: ADMIT Family Medicine; ATTEND Family Medicine
DX: G93.5 Compression of brain (principal); R20.2 Paresthesia of skin; M50.322 Other cervical disc degeneration at C5-C6 level; M47.812 Spondylosis without myelopathy or radiculopathy, cervical region; M50.222 Other cervical disc displacement at C5-C6 level; I10 Essential (primary) hypertension; E87.1 Hypo-osmolality and hyponatremia; D64.9 Anemia, unspecified; Z79.899 Other long term (current) drug therapy; Z90.49 Acquired absence of other specified parts of digestive tract
CPT/HCPCS: 36415; 70450; 70551; 70552; 72156; 80048; 80053; 80061; 80076; 82607; 84484; 85025; 85610; 85730; 90471; 90686; 93005; 93306; G0008; G0378; G8978-GP-CI; G8979-GP-CI; G8980-GP-CI; G8987-GO-CI; G8988-GO-CI; G8989-GO-CI; G8996-GN-CH; G8997-GN-CH; G8998-GN-CH; S0028

== ENCOUNTER 2019-05-25 19:02 | Emergency (ER) | payer OTHER ==
[~2019-05-25 19:02] MED LIST: Iopamidol-370 76% 500 ML 1 ML ONE
[2019-05-25] MEDS ORDERED: Aspirin Chewable 81 MG TAB ONE (19:45)
[2019-05-25] MEDS ORDERED: Famotidine/PF 20 mg/2ml Vial ONE (19:45)
--- NOTE | 2019-05-25 19:53 | RAD ---
XR Chest Pa Lat STANDARD History: Chest pain Comparison: Radiograph May 2018 Findings: Atelectatic changes lung bases. No pneumothorax. No effusion. No confluent consolidation. No acute osseous abnormality. Impression: No acute intrathoracic abnormality.
[2019-05-25 20:08] LABS: #Eosinphils 0.1 thou/uL (0.0-0.7); #Lymphocytes 2.7 thou/uL (1.20-3.40); #Monocytes 0.6 thou/uL (0.11-0.59); #Neutrophils 3.4 thou/uL (1.40-6.50); %Basophils 0.4 % (0.0-1.0); %Eosinophils 1.2 % (0.0-10.0); %Lymphocytes 39.5 % (21.0-51.0); %Monocytes 8.8 % (0.0-10.0); %Neutrophils 50.1 % (42.0-75.0); Hemoglobin 14.7 g/dL (14.0-18.0); Mean Corpuscular HGB CONC 33.9 g/dL (32.0-36.0); Mean Corpuscular Volume 91.6 fL (78.0-98.0); Mean Platelet Volume 6.4 fL (7.4-10.4); Platelet Count 265 thou/uL (130-400); RBC Distribution Width 11.4 % (11.5-14.5); Red Blood Cell (RBC) Count 4.73 mill/uL (4.70-6.10); White Blood Cell (WBC) Count 6.8 thou/uL (4.8-10.8)
[2019-05-25 20:29] LABS: ALT (SGPT) 10 U/L (8-55); AST (SGOT) 17 U/L (5-34); Albumin 4.2 g/dL (3.5-5.0); Alkaline Phosphatase 60 U/L (40-110); Anion Gap 11 mmol/L (10-20); BUN (Urea Nitrogen) 13 mg/dL (8.9-20.6); Bilirubin, Total 0.4 mg/dL (0.2-1.2); Calc. Creatinine Clearance 0 mL/min (70-130); Calcium 9.2 mg/dL (7.8-10.44); Carbon Dioxide 28 mmol/L (22-29); Chloride 104 mmol/L (98-107); Estimated GFR-MDRD 75; Globulin 3.2 g/dL (2.4-3.5); Glucose 95 mg/dL (70-105); Lipase 47 U/L (8-78); Potassium 4.2 mmol/L (3.5-5.1); Protein, Total 7.4 g/dL (6.0-8.3); Sodium 139 mmol/L (136-145)
--- NOTE | 2019-05-25 21:52 | CT ---
CTA Angio Chest W WO Con History: Pain Comparison: Chest radiograph same day Findings: CT angiogram chest performed after the intravenous administration of contrast. 3-D renderin g provided. No proximal segmental pulmonary arterial filling defect. No pericardial effusion. No mediastinal adenopathy. Mild atelectasis in the lung bases. No pneumothorax. No effusion. Thoracic spine is intact. Sternum a nd manubrium are intact. No acute displaced rib fracture. Impression: Normal examination of the chest.
--- NOTE | 2019-05-25 21:54 | CT ---
CT Abdomen Pelvis W Con History: Lower quadrant pain Comparison: CT exam May 2018 Findings: Prior cholecystectomy. Spleen, pancreas, liver are unremarkable. No hydronephrosis. No free intraperitoneal gas or fluid. Appendix is visualized and is normal. No dilated loops of large or small bowel. The aortic contour is normal. No acute osseous abnormality. Impression: Normal examination the abdomen and pelvis.
[2019-05-25] MEDS ORDERED: Lidocaine Viscous Sol 2% 15 ml UD Cup ONE (22:23)
[2019-05-25] MEDS ORDERED: Mag-Al 1200 mg/1200 mg/30 ML UDCUP ONE (22:23)
== END 2019-05-25 23:46 | disposition home or self-care (01) ==
LOC: ERS 19:02
DX: R10.13 Epigastric pain (principal); I10 Essential (primary) hypertension; Z79.899 Other long term (current) drug therapy
CPT/HCPCS: 71046; 71275; 74177; 80053; 83690; 84484; 85025; 93005; 96374; Q9967; S0028